=== PATIENT | male | born 1935 | race Caucasian/White ===

== ENCOUNTER → 2017-10-08 | Day surgery (SDC) | payer MEDICARE, OTHER ==
[2017-10-06 11:57] LABS: BASOPHILS % 0.5 % (0.0-1.0); EOSINOPHILS # (AUTO) 0.1 (0.0-0.4); EOSINOPHILS % 1.6 % (0.0-6.0); HEMATOCRIT 28.8 % (38.2-49.6); HEMOGLOBIN 9.6 g/dL (14.0-18.0); LYMPHOCYTES # (AUTO) 1.4 (1.0-3.2); LYMPHOCYTES % 24.2 % (18.0-39.1); MEAN CORPUSCULAR HGB CONC 33.3 g/dL (31-35); MONOCYTES # (AUTO) 0.4 (0.2-0.8); NEUTROPHILS # (AUTO) 3.7 (2.1-6.9); NEUTROPHILS % 66.3 % (38.7-80.0); PLATELET COUNT 178 x10e3/uL (140-360); RED CELL DISTRIBUTION WIDTH 13.9 % (11.7-14.4)
[~2017-10-08] MED LIST: ACIDOPHILUS1 EAC1 PO; ALENDRONATE SOD70 MG PO; ALENDRONATE SODI5 MG; AMLODIPINE BESYL5 MG PO; ASPIRIN81 M1 PO; CHLORTHALIDONE25 MG PO; CIPROFLOXACIN500 MG PO; DIAZEPAM2 MG; IBUPROFEN100 M1; LEVAQUIN500 MG PO; LIDOCAINE HCL 2% LOCAL INJ 5 ML SDV VIAL INJ ONE; LOVASTATIN10 MG; LOVASTATIN40 MG PO; Lactobacillus Acidophilus PO; MAGNESIUM OXID400 MG PO; MECLIZINE HCL12.5 MG PO; METFORMIN HCL500 M1 PO; METOPROLOL SUCC25 MG PO; METOPROLOL TART50 MG PO; Meclizine Hcl PO; NEXIUM40 MG PO; OMEPRAZOLE40 MG PO; PANTOPRAZOLE SO40 MG PO; PROPOFOL IV EMULSION 10 MG/ML 50 ML VIAL ONE; TERAZOSIN HCL5 MG PO; TYLENOL WITH C1 EAC1 PO; ULTRAM 50MG50 MG PO; VASOTEC10 M1 PO; VESICARE5 MG PO
--- OUTSIDE RECORDS SUMMARY | 2017-10-08 07:35 | XMS REPORT ---
Author Author [facility] Address Unknown Phone Unavailable Care Team Providers Care Rn Post Partum Name Role Phone DAGOBERTO HEWITT Unavailable Unavailable Problems This patient has no known problems. Allergies, Adverse Reactions, Alerts This patient has no known allergies or adverse reactions. Medications This patient has no known medications. Results Test Description Test Time Test Comments Text Results Atomic Results Result Comments CHEST XRAY LINE PLACEMENT [place] [address] Patient Name: DARIEN SINGH MR #: [id number] : 1935 Age/Sex: 81/M Req #: [id number] Adm Physician: DAGOBERTO HEWITT MD Ordered by: DAGOBERTO HEWITT MD Report #: [id number] Location: [facility] Room/Bed: [place] [address] Procedure: [id number] DX/CHEST XRAY LINE PLACEMENT Exam Date: 02/14/17 Exam Time: 1909 REPORT STATUS: Signed EXAMINATION: CHEST XRAY LINE PLACEMENT INDICATION: PICC line placement COMPARISON: 02/14/2017 at 1412 hours FINDINGS: TUBES and LINES: Interval placement of right upper extremity PICC line with tip at the proximal to mid SVC. LUNGS: Lungs are not well inflated. Lungs are clear. There is no evidence of pneumonia or pulmonary edema. PLEURA: No pleural effusion or pneumothorax. HEART AND MEDIASTINUM: The cardiomediastinal silhouette is unremarkable. BONES AND SOFT TISSUES: No acute osseous lesion. Soft tissues are unremarkable. UPPER ABDOMEN: No free air under the diaphragm. IMPRESSION: No acute thoracic abnormality. Signed by: Dr. Víctor tSacy M.D. on 02/14/2017 7:14 PM Dictated By: VÍCTOR SOARES MD 13 Transcribed By: LISA on 02/14/171913 COPY TO: DAGOBERTO HEWITT MD ANKLE 3 + VIEWS RIGHT [place] [address] Patient Name: DARIEN SINGH MR #: [id number] : 1935 Age/Sex: 81/M Req #: [id number] Adm Physician: Ordered by: WILLIAM NICHOLS MD Report #: [id number] Location: ER Room/Bed: Procedure: [id number] DX/ANKLE 3 + VIEWS RIGHT Exam Date: 02/14/17 Exam Time: 1412 REPORT STATUS: Signed ANKLE 3 + VIEWS RIGHT - 3 views HISTORY: Pain COMPARISON: None available. FINDINGS: Bones: No acute displaced fracture. Osseous alignment is within normal limits. Joints: The joint spaces are well-maintained. Soft tissues: Mild lateral malleolar soft tissue swelling. Vascular calcifications. IMPRESSION: No acute radiographic abnormality. Mild soft tissue swelling. Signed by: Dr. Zaid Sesay M.D. on 02/14/2017 2:30 PM Dictated By: KUNAL SESAY MD, MD 29 Transcribed By: LISA on 02/14/171429 COPY TO: WILLIAM NICHOLS MD CHEST SINGLE (PORTABLE) [place] [address] Patient Name: DARIEN SINGH MR #: [id number] : 1935 Age/Sex: 81/M Req #: [id number] Adm Physician: Ordered by: WILLIAM NICHOLS MD Report #: [id number] Location: ER Room/Bed: Procedure: [id number] DX/CHEST SINGLE (PORTABLE) Exam Date: 02/14/17 Exam Time: 1412 REPORT STATUS: Signed Examination: Single AP view of the chest. COMPARISON: None. INDICATION: Pain. Fall. DISCUSSION: Lines/tubes: None. Lungs: The lungs are well inflated and clear. There is no evidence of pneumonia or pulmonary edema. Pleura: There is no pleural effusion or pneumothorax. Heart and mediastinum: Cardiomediastinal silhouette is unremarkable. Pulmonary vasculature is normal. Bones and soft tissues: No acute bony abnormalities. Degenerative changes in the thoracic spine. IMPRESSION: 1. No acute osseous abnormality. Signed by: Dr. Zaid Sesay M.D. on 02/14/2017 2:31 PM Dictated By: KUNAL SESAY MD, MD 1431 Transcribed By : LISA on 02/14/17 1431 COPY TO: WILLIAM NICHOLS MD
[2017-10-08 08:17] LABS: BASOPHILS % 0.6 % (0.0-1.0); EOSINOPHILS # (AUTO) 0.2 (0.0-0.4); EOSINOPHILS % 3.3 % (0.0-6.0); HEMATOCRIT 27.3 % (38.2-49.6); HEMOGLOBIN 9.2 g/dL (14.0-18.0); LYMPHOCYTES # (AUTO) 1.3 (1.0-3.2); LYMPHOCYTES % 25.6 % (18.0-39.1); MEAN CORPUSCULAR HEMOGLOBIN 29.8 pg (28-32); MEAN CORPUSCULAR HGB CONC 33.7 g/dL (31-35); MEAN CORPUSCULAR VOLUME 88.3 fL (81-99); MONOCYTES # (AUTO) 0.4 (0.2-0.8); MONOCYTES % 8.4 % (4.4-11.3); NEUTROPHILS # (AUTO) 3.2 (2.1-6.9); NEUTROPHILS % 61.7 % (38.7-80.0); PLATELET COUNT 142 x10e3/uL (140-360); RED BLOOD COUNT 3.09 x10e6/uL (4.3-5.7); RED CELL DISTRIBUTION WIDTH 14.2 % (11.7-14.4)
== END | disposition home or self-care (01) ==
LOC: OR 07:33
PROVIDERS: ATTEND Internal Medicine Gastroenterology
DX: K52.9 Noninfective gastroenteritis and colitis, unspecified (principal); Z85.038 Personal history of other malignant neoplasm of large intestine; Z98.0 Intestinal bypass and anastomosis status; K64.8 Other hemorrhoids; K21.9 Gastro-esophageal reflux disease without esophagitis; E66.3 Overweight; R03.0 Elevated blood-pressure reading, without diagnosis of hypertension; E11.9 Type 2 diabetes mellitus without complications; Z88.0 Allergy status to penicillin; Z01.810 Encounter for preprocedural cardiovascular examination; Z01.812 Encounter for preprocedural laboratory examination; Z79.82 Long term (current) use of aspirin; Z68.26 Body mass index [BMI] 26.0-26.9, adult; Z85.828 Personal history of other malignant neoplasm of skin; Z86.73 Personal history of transient ischemic attack (TIA), and cerebral infarction without residual deficits; Z87.891 Personal history of nicotine dependence
CPT/HCPCS: 36415 ×2; 45380; 82948; 85025 ×2; 88305; 93005; J2001

== ENCOUNTER 2017-10-11 14:01 | Inpatient (IN) | payer MEDICARE, OTHER ==
[~2017-10-11] VITALS: Ht 177.8 cm; Wt 78.6 kg
[~2017-10-11 14:01] MED LIST changes: -LIDOCAINE HCL 2% LOCAL INJ 5 ML SDV VIAL INJ ONE; -PROPOFOL IV EMULSION 10 MG/ML 50 ML VIAL ONE; -TYLENOL WITH C1 EAC1 PO
[2017-10-11] MEDS ORDERED: SODIUM CHLORIDE FLUSH 10 ML SYR INJ PRN (16:30)
[2017-10-11] MEDS ORDERED: ONDANSETRON HCL INJ 2 MG/ML VIAL IV PRN (16:30)
[2017-10-11] MEDS ORDERED: MORPHINE SULFATE 2 MG/ML SYR IV PRN (16:35)
--- OUTSIDE RECORDS SUMMARY | 2017-10-11 17:08 | XMS REPORT | Continuity of Care Document ---
Author Author [facility] Organization [facility] Address [address] [place] [place] [address] Phone Unavailable Care Team Providers Care Bed Manager Name Role Phone ABEL, DAGBOERTO PCP Insurance Providers Guarantor Darien Singh Address [address] [place] [address] Email [email or web address] Payer [employer] Hmo Policy Number [id number] Subscriber's Name NellqingDarien Sara Relationship 18 Self / Same As Patient Group Number [id number] Group Name RETIRED Effective Date 17 Payer [employer] Medicare Policy Number [id number] Subscriber's Name Darien Singh Relationship 18 Self / Same As Patient Group Number [id number] Group Name [facility] Effective Date 13 Advance Directives Directive Response Recorded Date/Time Does the patient have an advance directive? Yes 10/06/17 10:53am If yes, is advance directive on file with [facility]? No 02/14/17 6:52pm If not on file with [facility] will patient provide a copy? Yes 10/06/17 10:53am Do you have a Directive to Physician? Yes 10/11/17 2:29pm Do you have a Medical Power of Coal Handling Supervisor? Yes 10/11/17 2:29pm Do you have an out of hospital Do Not Resuscitate Order? No 10/11/17 2:29pm Do you have any special needs we should be aware of? No 10/11/17 2:29pm Do you have a support person here with you today? Yes 10/11/17 2:29pm Did patient receive Notice of Privacy Practices? Yes 10/11/17 2:29pm Did patient receive patient rights and responsibilities? Yes 10/11/17 2:29pm Problems Medical Problem Onset Date Status Decreased ambulation status Unknown Dehydration Unknown Hip pain, left Unknown Hypokalemia Unknown Weakness of left lower extremity Unknown Medications Current Home Medications Medication Dose Units Route Directions Days Qty Instructions Start Date Alendronate Sodium 70 Mg Tablet 1 Tab Oral Wkly Amlodipine Besylate 5 Mg Tablet 5 Mg Oral Daily 30 Tab Enalapril Maleate (Vasotec) 10 Mg Tablet 20 Mg Oral Daily Lactobacillus Acidophilus (Acidophilus) 1 Each Tab.chew Oral Daily Lovastatin 40 Mg Tablet 40 Mg Oral Daily THERAPEUTICALLY SUBSTITUTED WITH SIMVASTATIN 20MG Magnesium Oxide 400 Mg Tablet 400 Mg Oral Twice A Day 30 Days 02/20 Meclizine Hcl 12.5 Mg Tablet 12.5 Mg Oral As Needed Metformin Hcl (Metformin Hcl Er) 500 Mg Tab.er.24h 500 Mg Oral Daily Metoprolol Tartrate 50 Mg Tablet 50 Mg Oral Daily Omeprazole 40 Mg Capsule. 1 Tab-Cap Oral Daily Solifenacin Succinate (Vesicare) 5 Mg Tablet 5 Mg Oral Daily 30 Days 02/20/17 Tramadol Hcl (Ultram 50MG*) 50 Mg Tab 50 Mg Oral Every 6 Hours as needed for Pain 20 Tab 02/20/17 Past Home Medications Medication Directions Ordered Status Alendronate Sodium 5 Mg Tablet, Weekly Discontinued Aspirin 81 Mg Tablet, 81 Mg Oral Daily Discontinued Chlorthalidone 25 Mg Tablet, 10 Tab Oral Daily Discontinued Ciprofloxacin Hcl 500 Mg Tablet, 500 Mg Oral Every 12 Hours 02/20/17 Discontinued Diazepam 2 Mg Tablet, Discontinued Esomeprazole Magnesium (Nexium) 40 Mg Capsule., 40 Mg Oral Daily Discontinued Ibuprofen 100 Mg Tab.chew, as needed Discontinued Lactobacillus Acidophilus 1 Tab Tab, 2 Tab Oral Daily 02/20/17 Discontinued Levofloxacin (Levaquin) 500 Mg Tablet, 500 Mg Oral Daily Discontinued Lovastatin 10 Mg Tablet, Discontinued Meclizine Hcl 12.5 Mg Tab, 12.5 Mg Oral Daily 02/20/17 Discontinued Metoprolol Succinate 25 Mg Tab.er.24h, 25 Mg Oral Daily Discontinued Pantoprazole Sodium (Protonix) 40 Mg Tablet.dr, 40 Mg Oral Twice Daily Before Meals Discontinued Terazosin Hcl 5 Mg Capsule, 10 Mg Oral Daily 02/17/17 Discontinued Terazosin Hcl 5 Mg Capsule, 10 Mg Oral Bedtime 02/20/17 Discontinued Terazosin Hcl 5 Mg Capsule, 10 Mg Oral Daily Discontinued Social History Social History Problem Response Recorded Date/Time Onset Date Status Hx Psychiatric Problems No 02/14/2017 6:52pm Not Applicable Not Applicable Hx Eating Disorder No 02/14/2017 6:52pm Not Applicable Not Applicable Hx Substance Use Disorder No 02/14/2017 6:52pm Not Applicable Not Applicable Hx Depression No 02/14/2017 6:52pm Not Applicable Not Applicable Hx Alcohol Use No 02/14/2017 6:52pm Not Applicable Not Applicable Hx Substance Use Treatment No 02/14/2017 6:52pm Not Applicable Not Applicable Hx Physical Abuse No 02/14/2017 6:52pm Not Applicable Not Applicable Smoking Status Start Date Stop Date Former smoker Hospital Discharge Instructions No hospital discharge instruction information available. Plan of Care Discharge Date 10/11/17 5:00pm Disposition ADMITTED Condition at Discharge Stable Prescriptions See Medication Section Referrals DAGOBERTO ROMAN DO Address: [address] [place] [id number] Functional Status No functional status information available. Allergies, Adverse Reactions, Alerts Allergen Type Severity Reaction Status Last Updated Penicillin Allergy Unknown RASH Active 10/06/17 Immunizations No immunization information available. Vital Signs Acute Vital Signs Vital Response Date/Time Temperature (Fahrenheit) 98.1 degrees F (97.6 - 99.5) 02/20/2017 12:57pm Pulse Pulse Rate (adult) 83 bpm (60 - 90) 02/20/2017 12:57pm Respiratory Rate 17 bpm (12 - 24) 02/20/2017 12:57pm Blood Pressure 141/76 mm Hg 02/20/2017 12:57pm Height 5 ft 10 in 10/11/2017 2:28pm Weight 173 lb 10/11/2017 2:28pm Body Mass Index 24.8 kg/m^2 10/11/2017 2:28pm Results Laboratory Results Test Name Result Units Flags Reference Collection Date/Time Result Date/ Time Comments Urine Color YELLOW YELLOW 02/14/2017 2:00pm 02/14/2017 2:48pm Urine Clarity CLEAR CLEAR 02/14/2017 2:00pm 02/14/2017 2:48pm Urine Specific [place] 1.010 1.010-1.025 02/14/2017 2:00pm 2016 2:48pm Urine pH 6 5 - 7 02/14/2017 2:00pm 02/14/2017 2:48pm Urine Leukocyte Esterase NEGATIVE NEGATIVE 02/14/2017 2:00pm 2016 2:48pm Urine Nitrite NEGATIVE NEGATIVE 02/14/2017 2:00pm 02/14/2017 2:48pm Urine Protein NEGATIVE NEGATIVE 02/14/2017 2:00pm 02/14/2017 2:48pm Urine Glucose (UA) NEGATIVE NEGATIVE 02/14/2017 2:00pm 02/14/2017 2: 48pm Urine Ketones NEGATIVE NEGATIVE 02/14/2017 2:00pm 02/14/2017 2:48pm Urine Urobilinogen 0.2 mg/dL 0.2 - 1 02/14/2017 2:00pm 02/14/2017 2: 48pm Urine Bilirubin NEGATIVE NEGATIVE 02/14/2017 2:00pm 02/14/2017 2: 48pm Urine Blood NEGATIVE NEGATIVE 02/14/2017 2:00pm 02/14/2017 2:48pm Urine WBC 0-5 /HPF 0-5 02/14/2017 2:00pm 02/14/2017 3:13pm Urine RBC 0-5 /HPF 0-5 02/14/2017 2:00pm 02/14/2017 3:13pm Urine Bacteria NONE /HPF NONE 02/14/2017 2:00pm 02/14/2017 3:13pm Urine Epithelial Cells FEW /LPF NONE 02/14/2017 2:00pm 02/14/2017 3: 13pm Sodium Level 141 mmol/L 136-145 02/20/2017 5:10am 02/20/2017 6:26am Potassium Level 3.7 mmol/L 3.5-5.1 02/20/2017 5:10am 02/20/2017 6:26am Chloride Level 108 mmol/L H 98-107 02/20/2017 5:10am 02/20/2017 6:26am Carbon Dioxide Level 26 mmol/L 22-29 02/20/2017 5:10am 02/20/2017 6: 26am Anion Gap 10.7 mmol/L 8-16 02/20/2017 5:10am 02/20/2017 6:26am Blood Urea Nitrogen 13 mg/dL 7-02/20/2017 5:10am 02/20/2017 6:26am Creatinine 0.82 mg/dL 0.72-1.25 02/20/2017 5:10am 02/20/2017 6:26am BUN/Creatinine Ratio 16 6-25 02/20/2017 5:10am 02/20/2017 6:26am Estimat Glomerular Filtration Rate > 60 ML/MIN 60- 02/20/2017 5:10am 6:26am Ranges were taken from the National Kidney Disease Education Program and the National Kid[employer] Foundation literature. Reference ranges: 60 or greater: Normal 16-59 (for 3 consecutive months): Chronic kidney disease 15 or less: Kidney failure Glucose Level 75 mg/dL 74-118 02/20/2017 5:10am 02/20/2017 6:26am Calcium Level 8.4 mg/dL 8.4-10.2 02/20/2017 5:10am 02/20/2017 6:26am Magnesium Level 1.1 MG/DL *L 1.3-2.1 02/19/2017 5:00am 02/19/2017 6:34am Results called to ALLAN RAMOS RN at 0633 on 02/19/17 by Marek Banks. RB OK. Total Bilirubin 1.0 mg/dL 0.2-1.2 02/15/2017 11:00am 02/15/2017 11: 51am Aspartate Amino Transf (AST/SGOT) 20 IU/L 5-34 02/15/2017 11:00am 02/15 11:51am Alanine Aminotransferase (ALT/SGPT) 17 IU/L 0-55 02/15/2017 11:00am 11:51am Total Protein 4.9 g/dL L 6.5-8.1 02/15/2017 11:00am 02/15/2017 11:51am Albumin 2.5 g/dL L 3.5-5.0 02/15/2017 11:00am 02/15/2017 11:51am Globulin 2.4 g/dL 2.3-3.5 02/15/2017 11:00am 02/15/2017 11:51am Albumin/Globulin Ratio 1.0 0.8-2.0 02/15/2017 11:00am 02/15/2017 11: 51am Alkaline Phosphatase 44 IU/L 40-150 02/15/2017 11:00am 02/15/2017 11: 51am Stool Lactoferrin (LAB) NEGATIVE NEGATIVE 02/15/2017 8:00pm 2016 8:26pm Testing on stool aspirate specimens is outside nurse emergency room claims since specimen type not validated on this assay. Clostridium Difficile Toxin A & B NEGATIVE NEGATIVE 02/15/2017 8:00pm 02/16/2017 10:33am Testing on stool aspirate specimens is outside nurse emergency room claims since specimen type not validated on this assay. White Blood Count 5.23 x10e3/uL 4.8-10.8 10/08/2017 8:1510/08/2017 8 :21am Red Blood Count 3.09 x10e6/uL L 4.3-5.7 10/08/2017 8:1510/08/2017 8: 21am Hemoglobin 9.2 g/dL L 14.0-18.0 10/08/2017 8:1510/08/2017 8:21am Hematocrit 27.3 % L 38.2-49.6 10/08/2017 8:1510/08/2017 8:21am Mean Corpuscular Volume 88.3 fL 81-99 10/08/2017 8:1510/08/2017 8: 21am Mean Corpuscular Hemoglobin 29.8 pg 28-32 10/08/2017 8:1510/08/2017 8:21am Mean Corpuscular Hemoglobin Concent 33.7 g/dL 31-35 10/08/2017 8:1510/08/2017 8:21am Red Cell Distribution Width 14.2 % 11.7-14.4 10/08/2017 8:152017 8:21am Platelet Count 142 x10e3/uL 140-360 10/08/2017 8:1510/08/2017 8: 21am Neutrophils (%) (Auto) 61.7 % 38.7-80.0 10/08/2017 8:1510/08/2017 8: 21am Lymphocytes (%) (Auto) 25.6 % 18.0-39.1 10/08/2017 8:15am 10/08/2017 8: 21am Monocytes (%) (Auto) 8.4 % 4.4-11.3 10/08/2017 8:15am 10/08/2017 8: 21am Eosinophils (%) (Auto) 3.3 % 0.0-6.0 10/08/2017 8:15am 10/08/2017 8: 21am Basophils (%) (Auto) 0.6 % 0.0-1.0 10/08/2017 8:15am 10/08/2017 8:21am IM GRANULOCYTES % 0.4 % 0.0-1.0 10/08/2017 8:15am 10/08/2017 8:21am Neutrophils # (Auto) 3.2 2.1-6.9 10/08/2017 8:15am 10/08/2017 8:21am Lymphocytes # (Auto) 1.3 1.0-3.2 10/08/2017 8:15am 10/08/2017 8:21am Monocytes # (Auto) 0.4 0.2-0.8 10/08/2017 8:15am 10/08/2017 8:21am Eosinophils # (Auto) 0.2 0.0-0.4 10/08/2017 8:15am 10/08/2017 8:21am Basophils # (Auto) 0.0 0.0-0.1 10/08/2017 8:15am 10/08/2017 8:21am Absolute Immature Granulocyte (auto 0.02 x10e3/uL 0-0.1 10/08/2017 8: 15am 10/08/2017 8:21am Bedside Glucose 127 mg/dL H 70-120 10/08/2017 7:44am 10/08/2017 7:51am Meter ID: [id number] Microbiology Results Procedure Source Organism/Result Collection Date/Time Result Date/Time Result Status Blood Culture Blood NO GROWTH AFTER 5 DAYS, FINAL REPORT 02/14/2017 3:50pm 02/19/2017 3:53pm Final Procedures Procedure Status Date Provider(s) INSERTION OF INFUSION DEV INTO SUP VENA CAVA, PERC APPROACH Completed WILLIAM NICHOLS MD Colonoscopy with biopsy Completed 10/08/17 DARREN GARIBAY MD Encounters Encounter Location Arrival/Admit Date Discharge/Depart Date Attending Provider Departed Emergency Room [facility] 10/11/17 2:01pm 5:00pm UZIEL CAIN MD Registered Surgical Day Care [facility] 10/08/17 7:33am DARREN GARIBAY MD Discharged Inpatient [facility] 02/15/17 2:33pm 02/20/17 3:30pm DAGOBERTO HEWITT MD
[2017-10-11] MEDS: SODIUM CHLORIDE 0.9% 1000ML 1,000 ML IV SCH (17:54)
[2017-10-11 18:00] VITALS: BP 147/72
[2017-10-11] MEDS ORDERED: ACETAMINOPHEN 325 MG TAB PO PRN (18:15)
[2017-10-11] MEDS ORDERED: DEXTROSE 50% SYRINGE 50 ML IV PRN (18:15)
[2017-10-11 19:29] VITALS: BP 147/72
[2017-10-11 20:00] VITALS: BP 152/72
[2017-10-11] MEDS: INSULIN REGULAR, HUMAN 100 UNIT/1 ML 3ML VIAL SQ SCH ×2 (20:48→21:00)
[2017-10-11] MEDS: HYDROCODONE/APAP 7.5MG-325MG 1 EA TAB PO PRN (21:13)
[2017-10-11] MEDS ORDERED: TERAZOSIN HCL5 MG PO (21:56)
[2017-10-11] MEDS ORDERED: MECLIZINE HCL 12.5 MG TAB PO PRN (22:15)
[2017-10-12] VITALS (7 sets, daily range): BP systolic 168–188; BP diastolic 79–85
[2017-10-12] MEDS: SODIUM CHLORIDE 0.9% 1000ML 1,000 ML IV SCH ×3 (00:30→16:07)
[2017-10-12] MEDS: INSULIN REGULAR, HUMAN 100 UNIT/1 ML 3ML VIAL SQ SCH ×3 (07:30→16:30)
[2017-10-12] MEDS ORDERED: HYDRALAZINE HCL 20 MG/ML VIAL IV PRN (08:30)
[2017-10-12] MEDS ORDERED: PANTOPRAZOLE SOD 40 MG TABEC PO SCH (08:30)
[2017-10-12] MEDS ORDERED: TRAMADOL HCL 50 MG TAB PO PRN (08:30)
[2017-10-12 08:56] LABS: BASOPHILS % 0.4 % (0.0-1.0); EOSINOPHILS # (AUTO) 0.2 (0.0-0.4); EOSINOPHILS % 3.7 % (0.0-6.0); HEMOGLOBIN 9.3 g/dL (14.0-18.0); LYMPHOCYTES # (AUTO) 1.6 (1.0-3.2); LYMPHOCYTES % 31.6 % (18.0-39.1); MEAN CORPUSCULAR HEMOGLOBIN 29.8 pg (28-32); MEAN CORPUSCULAR HGB CONC 33.2 g/dL (31-35); MEAN CORPUSCULAR VOLUME 89.7 fL (81-99); MONOCYTES # (AUTO) 0.4 (0.2-0.8); MONOCYTES % 8.3 % (4.4-11.3); NEUTROPHILS # (AUTO) 2.9 (2.1-6.9); NEUTROPHILS % 55.8 % (38.7-80.0); PLATELET COUNT 122 x10e3/uL (140-360); RED BLOOD COUNT 3.12 x10e6/uL (4.3-5.7); RED CELL DISTRIBUTION WIDTH 14.4 % (11.7-14.4)
[2017-10-12] MEDS ORDERED: SOLIFENACIN SUCCINATE 5 MG TAB PO SCH (09:00)
[2017-10-12] MEDS ORDERED: SIMVASTATIN 20 MG TAB PO SCH (09:00)
[2017-10-12] MEDS ORDERED: METOPROLOL TARTRATE 50 MG TAB PO SCH (09:00)
[2017-10-12] MEDS ORDERED: TERAZOSIN HCL 5 MG CAP PO SCH (09:00)
[2017-10-12] MEDS ORDERED: ENALAPRIL MALEATE 10 MG TAB PO SCH (09:00)
[2017-10-12] MEDS ORDERED: ENOXAPARIN SOD INJ 40 MG/0.4 ML SYR SC SCH (09:00)
[2017-10-12] MEDS ORDERED: AMLODIPINE BESYLATE 5 MG TAB PO SCH (09:00)
[2017-10-12] MEDS ORDERED: LACTOBACILLUS ACIDOPHILUS CAPSULE PO SCH (09:00)
[2017-10-12 09:16] LABS: ALANINE AMINOTRANSFERASE 15 IU/L (0-55); ALBUMIN 3.3 g/dL (3.5-5.0); ALBUMIN/GLOBULIN RATIO 1.3 (0.8-2.0); ALKALINE PHOSPHATASE 54 IU/L (40-150); ANION GAP 11.5 mmol/L (8-16); BLOOD UREA NITROGEN 16 mg/dL (7-26); BUN/CREATININE RATIO 14 (6-25); CALCIUM 8.8 mg/dL (8.4-10.2); CARBON DIOXIDE 27 mmol/L (22-29); CHLORIDE 104 mmol/L (98-107); CREATININE, SERUM 1.11 mg/dL (0.72-1.25); EST GLOMERULAR FILTRATION RATE > 60 ML/MIN (60-); GLUCOSE 109 mg/dL (74-118); POTASSIUM 3.5 mmol/L (3.5-5.1); SODIUM 139 mmol/L (136-145)
[2017-10-12] MEDS: MAGNESIUM OXIDE 400 MG TAB PO SCH ×2 (09:36→17:52)
[2017-10-12 12:52] LABS: CLARITY,URINE CLOUDY (CLEAR); COLOR,URINE YELLOW (YELLOW)
[2017-10-12 12:53] LABS: BACTERIA,URINE MODERATE /HPF; BILIRUBIN,URINE NEGATIVE (NEGATIVE); EPITHELIAL CELLS,URINE FEW /LPF; KETONES,URINE NEGATIVE (NEGATIVE); LEUKOCYTE ESTERASE ,URINE 1+ (NEGATIVE); NITRITE,URINE POSITIVE (NEGATIVE); PROTEIN,URINE DIPSTICK NEGATIVE (NEGATIVE); URINE UROBILINOGEN 0.2 mg/dL (0.2 - 1)
--- NOTE | 2017-10-12 15:15 | Diagnostic Imaging Report ---
Exam: Brain MRI without IV contrast History: Right lower extremity weakness Comparison studies: None Technique: Sagittal and axial T2, axial DWI, axial T2*GRE, axial T1 FLAIR and axial coronal T2 FLAIR. Intravenous contrast: None Findings: Scalp and bone marrow: Postsurgical changes at the craniocervical junction and included upper cervical spine with susceptibility artifact related to metallic hardware (possibly cerclage wires) in the upper dorsal cervical soft tissues. Surgical changes extend from the dorsal cervical soft tissues to the midline occipital scalp incision scar with possible changes of decompressive occipital craniotomy/craniectomy. The anterior C1 arch and dens are fused and there is fusion of C1-C2 to the basion and occipital condyles. Cannot adequately evaluate the craniocervical junction due to artifacts. Mildly prominent Brain sulci: Appropriate for age. Ventricles: Mild compensatory dilatation. No hydrocephalus. Extra-axial spaces: No mass, no fluid collection. Parenchyma: No mass, acute hemorrhage or acute ischemia. No abnormal restricted diffusion. 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 There are multiple chronic insults with encephalomalacia and gliosis throughout the right posterior cerebellum, within the left inferomedial cerebellum as well as smaller lacunar insults in the bilateral cerebellar hemispheres. Additional small chronic cortical-subcortical insult along the lingual and cuneus gyri of the right occipital lobe. Suprasellar region: No abnormalities. Craniocervical junction: The above. Vessels: Normal flow-voids in the arteries and sinuses. IMPRESSION: 1. No acute abnormalities. Specifically, no acute ischemia. 2. Postsurgical changes with craniocervical fusion and probably posterior fossa decompression. 3. Chronic insults with encephalomalacia and gliosis in the bilateral cerebellar hemispheres with smaller insult in the right occipital lobe and left thalamus. 4. Mild supratentorial chronic microvascular ischemic changes. 5. Mild generalized volume loss. Signed by: Dr. Duane Lujan M.D. on 10/12/2017 3:11 PM
--- NOTE | 2017-10-12 17:26 | Diagnostic Imaging Report ---
EXAMINATION: MRI of the lumbar spine without contrast HISTORY: Severe low back pain for the last 4 days, left hip pain COMPARISON: Chest CT on 06/29/2012. TECHNIQUE: Sagittal T1, T2, STIR; axial T2 and proton density. FINDINGS: It is assumed that there are 5 lumbar vertebrae. Curvature/Alignment: S-shaped scoliosis with dextroscoliosis center at L1-L2 and distal levoscoliosis centered at L3-L4. Grade 1 retrolisthesis at L1 to and great 1-2 anterolisthesis at L5-S1. Right lateral spondylolisthesis at L2-L3. Vertebrae: Severe recent osteoporotic compression/likely burst fracture off the T12 vertebral body, with approximately 2 mm posterior retropulsion into the spinal canal, no significant canal stenoses and no evidence of distal thoracic spinal cord/conus medullaris compression. There is decreased vertebral body height by approximately 90% centrally, with prominent bone marrow edema throughout the vertebral body and extending to the pedicles mainly on the left side. Comminution and depression of the superior and inferior endplates. Mild chronic compression fractures of the T10 and T11 vertebral bodies grossly unchanged from chest CT on 06/29/2012. Minimal edema in the right T11 pedicle is partially visualized. Prominent subchondral bone marrow edema at L1-L2 mainly on the left side and on the right side at L3-L4 due to Modic I endplate degenerative changes, additional minimal superimposed component of compression fracture in the L1-L2 endplates cannot be excluded. Conus: Normal, terminating at L1 Cauda equina: Unremarkable. Lower thoracic: As above Paraspinal soft tissues: Moderate to severe atrophy of the paraspinal muscles. Partially visualized portable extrarenal pelvis on the left kidney Degenerative changes: L1-L2: Dictated disc height and T2 signal intensity, asymmetric to left disc pole which and marginal endplate osteophytes, bilateral facet arthrosis. Moderate spinal canal stenosis. Moderate right and severe left foraminal stenosis. L2-L3: Asymmetric to the right disc osteophyte and facet arthrosis. Ligamenta flava thickening. Mild spinal canal stenosis. Severe right and moderate left foraminal stenosis. L3-L4: Asymmetric to the right disc osteophyte and facet arthrosis, ligamenta flava thickening. Moderate spinal canal and severe right foraminal stenosis. L4-L5: Asymmetric to the left disc pole which and prominent approximately 7 mm left foraminal/extraforaminal disc herniation which is probably compressing the exiting left L4 nerve root. Bilateral facet arthrosis. Severe left and moderate right foraminal stenoses L5-S1: Symmetric disc bulge with nonspecific increased T2 signal within the nucleus pulposus. Bilateral facet arthrosis. Bilateral L5 pars interarticulares spondylolysis. Severe bilateral foraminal stenoses. Sacroiliac joints: Degenerative changes bilaterally. IMPRESSION: 1. Severe acute compression fracture of the T12 vertebral body with minimal posterior retropulsion, no significant canal stenoses or cord compression. 2. Modic type I endplate degenerative changes at L1-L2 and L3-4 with prominent subchondral bone marrow edema. 3. Grade 1 spondylolisthesis at L5-S1 with bilateral spondylolysis and severe bilateral foraminal stenoses. 4. Moderate to severe spinal canal and foraminal stenoses from L1-L2 to L4-L5 as detailed above. The findings were discussed with the requesting physician Dr. Alexandras BRITT Navarro on 10/12/2017 at 5:00 PM, who will inform the attending physician about this findings. Signed by: Dr. Anita Aldana M.D. on 10/12/2017 5:22 PM
[2017-10-12] MEDS: HYDROCODONE/APAP 7.5MG-325MG 1 EA TAB PO PRN ×2 (17:40→19:45)
[2017-10-12] MEDS ORDERED: TYLENOL WITH C1 EAC1 PO (17:59)
--- NOTE | 2017-10-12 19:03 | History and Physical ---
SHORTSTAY SUMMARY DATE OF DISCHARGE: 10/12/2017 PRIMARY CARE PROVIDER: Dr. Schuyler Turner. ADMITTING DIAGNOSES 1. Intractable left hip and leg pain. 2. Contusion, left hip. 3. History of total hip arthroplasty, left hip. 4. 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 5. Osteoporosis. 6. Hypertension. 7. Type-2 diabetes. 8. History of carcinoid cancer of the colon. DISCHARGE DIAGNOSES 1. Intractable left hip and leg pain. 2. Contusion, left hip. 3. History of total hip arthroplasty, left hip. 4. 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 5. Osteoporosis. 6. Hypertension. 7. Type-2 diabetes. 8. History of carcinoid cancer of the colon. BRIEF HISTORY: Mr. Dorsey is an 82-year-old gentleman who had a colonoscopy a couple of days ago where he was lying for a prolonged period on his left hip. The patient has a history of open reduction and internal fixation of the left femur in 1969, and he had a total hip replacement, total hip arthroplasty done in [address] Turner. The patient was complaining of pain in the left hip and difficulty bearing weight after the procedure for the last couple of days and presented to the ER yesterday. REVIEW OF SYSTEMS: He denies fever, chills or weight loss. He denies sinus congestion or sore throat. He denies chest pain or palpitations. He denies shortness of breath, wheezing or cough. He denies abdominal pain, nausea, vomiting or melena. He has chronic diarrhea. He denies dysuria or flank pain. He denies rash or pruritus. He has pain in the left hip and left upper leg with some weakness. He denies bleeding or bruising. He denies headache, vertigo or loss of consciousness. He denies depression, agitation, homicidal or suicidal ideation. PAST MEDICAL HISTORY: Significant for longstanding hypertension and type-2 diabetes. He has had some evidence of chronic kidney disease. He has had a previous stroke. He has coronary artery disease, gastroesophageal reflux and chronic back pain. He also has a history of carcinoid cancer of the colon, which was resected, and he has had some chemotherapy since then. He has also had a cholecystectomy. He has had cataract surgery. MEDICATIONS: His regular home medications include: 1. Fosamax 70 mg weekly. 2. Norvasc 5 mg daily. 3. Enalapril 20 mg daily. 4. Acidophilus daily. 5. Lovastatin 40 mg daily. 6. Magnesium oxide 400 twice daily. 7. Calcium with vitamin D twice daily. 8. Meclizine 25 mg as needed. 9. Metoprolol 50 mg daily. 10. Omeprazole 40 mg daily. 11. VESIcare 5 mg daily. 12. Hytrin 5 mg daily. 13. Tramadol as needed for pain. 14. Metformin 500 mg daily. ALLERGIES: HE HAS A STATED ALLERGY TO PENICILLIN. FAMILY HISTORY: Significant for hypertension, diabetes and heart disease. SOCIAL HISTORY: The patient is . Prydein[place] is his primary language. He is . He is here with his . He quit smoking in 1984. He does not drink or use illegal drugs, and he is generally independently functioning. PHYSICAL EXAMINATION PSYCHIATRIC: He is alert and oriented times 3 with normal mood and affect. CONSTITUTIONAL: He has a normal body habitus. He is in no acute distress. VITAL SIGNS: Blood pressure 178/81. Pulse 76 and regular. Respiratory rate 16. O2 sat 93%. Temperature 98.6. HEENT: Head is atraumatic. Eyes are anicteric with clear conjunctivae. Ears and nares are without erythema or discharge. Oropharynx is clear. NECK: Supple. No mass or thyromegaly. LYMPHATIC SYSTEM: He has no palpable cervical, axillary or inguinal adenopathy. CARDIOVASCULAR: His heart has a regular rate and rhythm without murmur or extra heart sound. He has no carotid bruit. He has no peripheral edema. He has weak dorsal pedal pulses. RESPIRATORY: Lungs are clear to auscultation and percussion with normal respiratory effort. GASTROINTESTINAL: Abdomen is soft without organomegaly, masses or tenderness. He has normal bowel sounds present. CUTANEOUS: His skin is warm and dry to touch with no rash or skin breakdown. MUSCULOSKELETAL: His joints are in normal alignment without erythema or swelling. He has some mild tenderness in the left hip. He has no calf tenderness. NEUROLOGIC: Exam is nonfocal with intact cranial nerves and no motor or sensory deficits. DIAGNOSTIC STUDIES: MRI scan of the brain shows no acute changes but does show some severe chronic changes, postsurgical changes in the craniocervical area probably due to posterior fossa decompression and chronic insults with encephalomalacia and gliosis in the bilateral cerebellar hemispheres with small insult in the right occipital lobe and left thalamus. Mild supratentorial chronic microvascular ischemic changes and generalized volume loss. MRI of the lumbar spine shows chronic T12 compression fracture that is pretty severe but shows no cord compression at that level or foraminal narrowing. He has severe DJD in the L4-5, L3-4 area with some central canal stenosis but no neural foraminal narrowing. His chemistry shows normal electrolytes, CO2 27, creatinine 1.11 and BUN 16 for a normal GFR. His baseline is around 50. He was hydrated overnight, which seems to have helped. Calcium is 8.8. Glucose is 109. Transaminases, bilirubin and alk phos are all normal. CBC shows a white count of 5.16 with a normal differential. Hemoglobin 9.3, hematocrit 28.0 and platelet count 122,000. IMPRESSION AND PLAN 1. Contusion of left hip. The patient is feeling better with pain medication and has ambulated with PT and OT and a walker without difficulty. 2. Chronic degenerative changes in the lumbar spine and chronic T12 compression fracture. The patient is asymptomatic from these, so we will just monitor them. 3. Osteoporosis as evidenced by the T12 compression fracture. The patient is on Fosamax and calcium and magnesium plus vitamin D. 4. Hypertension. Patient is well controlled on his home medications. Will continue those. 5. Type-2 diabetes. Will hold the patient's metformin in view of the IV contrast. Patient can start his metformin once he goes home. Will use sliding-scale insulin as needed for coverage now. 6. For prophylaxis, the patient was given Lovenox for DVT prophylaxis and Protonix for GI prophylaxis. HOSPITAL COURSE: The patient was admitted to the floor overnight for observation. With hydration and pain medication, the patient felt much better the following day. He was ambulating with PT and OT, had no pain, no back pain and his hip pain had improved substantially, although the patient did take some pain medication. The patient will be discharged home to resume all of his home meds. He was instructed to drink more fluids for his kidneys. He can resume a diabetic diet and activity as tolerated. He will be given a prescription for some Tylenol No. 4 as needed for pain. He can follow up with his primary care provider within 2 weeks. Job#: [id number]
--- NOTE | 2017-10-12 20:14 | Consultation ---
DATE OF CONSULTATION: October 12, 2017 at 5 p.m. NEUROLOGICAL CONSULTATION REASON FOR CONSULTATION: Pain and weakness in the left leg. This is an 82-year-old male. During the time of this examination, his is visiting him. He is awake. He is smiling, comfortable, very talkative. Reason for the hospitalization is that the said since Thursday he was unable to stand up because of pain in the left hip and left leg. At the present time, she said he does not have any pain. He is moving his arms and legs quite well. He was able to walk with the physical therapist today. PAST MEDICAL HISTORY: Hypertension, chronic back pain, left hip replacement, cancer of the colon. MEDICATIONS: List of medications reviewed. ALLERGIES: NO KNOWN DRUG ALLERGIES. SOCIAL HISTORY: Noncontributory. PHYSICAL EXAMINATION VITAL SIGNS: Blood pressure 178/81, pulse 76, temperature 98.6. LUNGS: Clear to auscultation. HEART: Regular sinus rhythm, no murmurs. ABDOMEN: Soft, nontender, no organomegaly. LOWER EXTREMITIES: No edema, no cyanosis, no clubbing. NEUROLOGIC: Alert, oriented x3. Speech clear. Cranial nerves: Pupils are both equal and reactive. Extraocular movements were full. Visual bowman normal. No facial weakness. Motor power: Upper extremities show able to elevate against gravity without any difficulty. Muscle strength: Abduction of the arms 5/5. Flexion, extension of the arms 5/5. Dorsiflexion of the wrist 5/5. Finger extension 5/5. Hand sql ssrs ssis developer 5/5. Lower extremities: The patient is able to elevate both lower extremities against gravity without any difficulty. Flexion of the hips 5/5. Flexion and extension of the knees 5/5. Dorsal flexion of the ankles 5/5. Plantar sensation 5/5 bilaterally. Deep tendon reflexes: Triceps, biceps and radials 1+. Knee jerk 1+, ankle jerk absent bilaterally. Plantar stimulation down bilaterally. Sensory: Pinprick is normal. Hip motion: Internal and external rotation bilaterally without any pain. HEAD: Normocephalic. NECK: Supple. Carotid pulsations were present bilaterally. There were no bruits. LABORATORY DATA: CBC shows a white count 5100 with a hemoglobin 9.3, hematocrit 28, platelets 122,000. Chemistry: Sodium 139, potassium 3.5. BUN 16, creatinine 1.11. Estimated GFR greater than 60. Blood sugar 109. Liver enzymes are all normal. Urinalysis: Moderate bacteria, WBCs 6-10. IMAGING: MRI of the brain without contrast shows some chronic small vessel disease bilaterally. MRI of the lumbar spine shows acute compression fracture of T12. Chronic osteoarthritic changes of the lumbar spine with narrowing foramina, moderate to severe spinal stenosis at L1, L2 to L4, L5, otherwise looks fine, seems to be chronic changes. The patient is very anxious to go home. I will be discussing with attending physician for further options. Job#: [id number]
[2017-10-18] MEDS ORDERED: ALENDRONATE SODIUM 70 MG TAB PO SCH (06:30)
== END 2017-10-12 19:53 | disposition home or self-care (01) | DRG 605 ==
LOC: FSED 14:01 → MED/SURG 17:06
PROVIDERS: ADMIT Internal Medicine; ATTEND Internal Medicine
DX: S70.02XA Contusion of left hip, initial encounter (principal); I13.0 Hypertensive heart and chronic kidney disease with heart failure and stage 1 through stage 4 chronic kidney disease, or unspecified chronic kidney disease; E11.22 Type 2 diabetes mellitus with diabetic chronic kidney disease; I10 Essential (primary) hypertension; M47.896 Other spondylosis, lumbar region; G89.29 Other chronic pain; Z96.642 Presence of left artificial hip joint; E11.9 Type 2 diabetes mellitus without complications; M80.08XD Age-related osteoporosis with current pathological fracture, vertebra(e), subsequent encounter for fracture with routine healing; I25.10 Atherosclerotic heart disease of native coronary artery without angina pectoris; Z86.73 Personal history of transient ischemic attack (TIA), and cerebral infarction without residual deficits; K21.9 Gastro-esophageal reflux disease without esophagitis; N18.9 Chronic kidney disease, unspecified; F17.210 Nicotine dependence, cigarettes, uncomplicated
CPT/HCPCS: 36415; 70551; 72148; 80053; 81001; 82948; 85025; 99284; J1650; J2270; J2405; J7030

== ENCOUNTER 2017-10-13 12:29 | Emergency (ER) | payer MEDICARE, OTHER ==
[~2017-10-13] VITALS: Ht 177.8 cm; Wt 78.5 kg
[~2017-10-13 12:29] MED LIST changes: +TYLENOL WITH C1 EAC1 PO
--- OUTSIDE RECORDS SUMMARY | 2017-10-13 12:32 | XMS REPORT | Continuity of Care Document ---
Author Author [facility] Organization [facility] Address [address] [place] [address] Phone Unavailable Care Team Providers Care Senior Partner Name Role Phone DAGOBERTO ROMAN DO PCP Insurance Providers Guarantor Darien Singh Address [address] [place] [address] Email [email or web address] Payer [employer] Medicare Policy Number [id number] Subscriber's Name Darien Singh Relationship 18 Self / Same As Patient Group Number [id number] Group Name [facility] Effective Date 17 [facility] Policy Number [id number] Subscriber's Name Darien Singh Relationship 18 Self / Same As Patient Group Number [id number] Group Name RETIRED Effective Date 17 Advance Directives Directive Response Recorded Date/Time Does the patient have an advance directive? Yes 10/11/17 5:56pm If yes, is advance directive on file with [facility]? No 10/11/17 5:56pm If not on file with [facility] will patient provide a copy? Yes 10/11/17 5:56pm Do you have a Directive to Physician? Yes 10/11/17 2:29pm Do you have a Medical Power of New Media Strategist? Yes 10/11/17 2:29pm Do you have an [...] Route Directions Days Qty Instructions Start Date Acetaminophen With Codeine (Tylenol With Codeine #4 Tablet) 1 Each Tablet 1 Tab Oral Every 6 Hours for Pain 90 10/12/17 Alendronate Sodium 70 Mg Tablet 1 Tab [...] Days 02/20 Meclizine Hcl 12.5 Mg Tablet 25 Mg Oral As Needed Metformin Hcl (Metformin Hcl Er) 500 Mg Tab.er.24h 500 Mg Oral Daily Metoprolol Tartrate 50 Mg Tablet 50 Mg Oral Daily Omeprazole 40 Mg Capsule. 1 Tab-Cap Oral Daily Solifenacin Succinate (Vesicare) 5 Mg Tablet 5 Mg Oral Daily 30 Days 02/20/17 Terazosin Hcl 5 Mg Capsule 5 Mg Oral Daily 30 Cap Tramadol Hcl (Ultram 50MG*) 50 Mg Tab [...] Tablet, Discontinued Esomeprazole Magnesium (Nexium) 40 Mg Capsule.dr, 40 Mg Oral Daily Discontinued Ibuprofen 100 [...] Onset Date Status Hx Psychiatric Problems No 10/11/2017 5:56pm Not Applicable Not Applicable Hx Eating Disorder No 10/11/2017 5:56pm Not Applicable Not Applicable Hx Substance Use Disorder No 10/11/2017 5:56pm Not Applicable Not Applicable Hx Depression No 10/11/2017 5:56pm Not Applicable Not Applicable Hx Alcohol Use No 10/11/2017 5:56pm Not Applicable Not Applicable Hx Substance Use Treatment No 10/11/2017 5:56pm Not Applicable Not Applicable Hx Physical Abuse No 10/11/2017 5:56pm Not Applicable Not Applicable Smoking Status Start Date Stop Date Former smoker Hospital Discharge Instructions No hospital discharge instruction information available. Plan of Care Discharge Date 10/12/17 7:53pm Disposition HOME, SELF-CARE Instructions/Education Provided Back Pain Prescriptions See Medication Section Additional Instructions/Education ADA diet Activity as tolerated f/u PCP w/in 2wks Functional Status Query Response Date Recorded FUNCTIONAL STATUS . October 12, 2017 12:17pm Ambulation Ability Independent October 11, 2017 6:00pm Toileting Ability Minimum Assistance October 12, 2017 6:58pm Allergies, Adverse Reactions, Alerts Allergen Type Severity Reaction Status Last Updated Penicillin Allergy Unknown RASH Active 10/06/17 Immunizations No immunization information available. Vital Signs Acute Vital Signs Vital Response Date/Time Temperature (Fahrenheit) 98.6 degrees F (97.6 - 99.5) 10/12/2017 4:00pm Pulse Pulse Rate (adult) 76 bpm (60 - 90) 10/12/2017 4:00pm Respiratory Rate 16 bpm (12 - 24) 10/12/2017 4:00pm Blood Pressure 178/81 mm Hg 10/12/2017 4:00pm Height 5 ft 10 in 10/11/2017 2:28pm Weight 173.25 lb 10/12/2017 8:02am Body Mass Index 24.9 kg/m^2 10/12/2017 8:02am Results Laboratory Results Test Name Result Units Flags Reference Collection Date/Time Result Date/ Time Comments Magnesium Level 1.1 MG/DL *L 1.3-2.1 02/19/2017 5:00am 02/19/2017 6:34am Results called to ALLAN RAMOS RN at 0633 on 02/19/17 by Marek Banks. CHERIE OK. Stool Lactoferrin (LAB) NEGATIVE NEGATIVE 02/15/2017 8:00pm 2016 8:26pm Testing on stool aspirate specimens is outside welder 2nd shift claims since specimen type not validated on this assay. Clostridium Difficile Toxin A & B NEGATIVE NEGATIVE 02/15/2017 8:00pm 02/16/2017 10:33am Testing on stool aspirate specimens is outside welder 2nd shift claims since specimen type not validated on this assay. White Blood Count 5.16 x10e3/uL 4.8-10.8 10/12/2017 8:45am 10/12/2017 9 :04am Red Blood Count 3.12 x10e6/uL L 4.3-5.7 10/12/2017 8:45am 10/12/2017 9: 04am Hemoglobin 9.3 g/dL L 14.0-18.0 10/12/2017 8:45am 10/12/2017 9:04am Hematocrit 28.0 % L 38.2-49.6 10/12/2017 8:45am 10/12/2017 9:04am Mean Corpuscular Volume 89.7 fL 81-99 10/12/2017 8:45am 10/12/2017 9: 04am Mean Corpuscular Hemoglobin 29.8 pg 28-32 10/12/2017 8:45am 10/12/2017 9:04am Mean Corpuscular Hemoglobin Concent 33.2 g/dL 31-35 10/12/2017 8:45am 10/12/2017 9:04am Red Cell Distribution Width 14.4 % 11.7-14.4 10/12/2017 8:45am 2017 9:04am Platelet Count 122 x10e3/uL L 140-360 10/12/2017 8:45am 10/12/2017 9: 04am Neutrophils (%) (Auto) 55.8 % 38.7-80.0 10/12/2017 8:45am 10/12/2017 9: 04am Lymphocytes (%) (Auto) 31.6 % 18.0-39.1 10/12/2017 8:45am 10/12/2017 9: 04am Monocytes (%) (Auto) 8.3 % 4.4-11.3 10/12/2017 8:45am 10/12/2017 9: 04am Eosinophils (%) (Auto) 3.7 % 0.0-6.0 10/12/2017 8:45am 10/12/2017 9: 04am Basophils (%) (Auto) 0.4 % 0.0-1.0 10/12/2017 8:45am 10/12/2017 9:04am IM GRANULOCYTES % 0.2 % 0.0-1.0 10/12/2017 8:45am 10/12/2017 9:04am Neutrophils # (Auto) 2.9 2.1-6.9 10/12/2017 8:45am 10/12/2017 9:04am Lymphocytes # (Auto) 1.6 1.0-3.2 10/12/2017 8:45am 10/12/2017 9:04am Monocytes # (Auto) 0.4 0.2-0.8 10/12/2017 8:45am 10/12/2017 9:04am Eosinophils # (Auto) 0.2 0.0-0.4 10/12/2017 8:45am 10/12/2017 9:04am Basophils # (Auto) 0.0 0.0-0.1 10/12/2017 8:45am 10/12/2017 9:04am Absolute Immature Granulocyte (auto 0.01 x10e3/uL 0-0.1 10/12/2017 8: 45am 10/12/2017 9:04am Urine Color YELLOW YELLOW 10/12/2017 12:30pm 10/12/2017 12:53pm Urine Clarity CLOUDY H CLEAR 10/12/2017 12:30pm 10/12/2017 12:53pm Urine Specific [place] 1.015 1.010-1.025 10/12/2017 12:30pm 2017 12:53pm Urine pH 7 5 - 7 10/12/2017 12:30pm 10/12/2017 12:53pm Urine Leukocyte Esterase 1+ H NEGATIVE 10/12/2017 12:30pm 10/12/2017 12:53pm Urine Nitrite POSITIVE H NEGATIVE 10/12/2017 12:30pm 10/12/2017 12: 53pm Urine Protein NEGATIVE NEGATIVE 10/12/2017 12:30pm 10/12/2017 12: 53pm Urine Glucose (UA) NEGATIVE NEGATIVE 10/12/2017 12:30pm 10/12/2017 12 :53pm Urine Ketones NEGATIVE NEGATIVE 10/12/2017 12:30pm 10/12/2017 12: 53pm Urine Urobilinogen 0.2 mg/dL 0.2 - 1 10/12/2017 12:30pm 10/12/2017 12: 53pm Urine Bilirubin NEGATIVE NEGATIVE 10/12/2017 12:30pm 10/12/2017 12: 53pm Urine Blood TRACE H NEGATIVE 10/12/2017 12:30pm 10/12/2017 12:53pm Urine WBC 6-10 /HPF H 0-5 10/12/2017 12:30pm 10/12/2017 12:53pm Urine RBC NONE /HPF 0-5 10/12/2017 12:30pm 10/12/2017 12:53pm Urine Bacteria MODERATE /HPF H NONE 10/12/2017 12:30pm 10/12/2017 12: 53pm Urine Epithelial Cells FEW /LPF NONE 10/12/2017 12:30pm 10/12/2017 12: 53pm Sodium Level 139 mmol/L 136-145 10/12/2017 8:45am 10/12/2017 9:16am Potassium Level 3.5 mmol/L 3.5-5.1 10/12/2017 8:45am 10/12/2017 9:16am Chloride Level 104 mmol/L 98-107 10/12/2017 8:45am 10/12/2017 9:16am Carbon Dioxide Level 27 mmol/L 22-29 10/12/2017 8:45am 10/12/2017 9: 16am Anion Gap 11.5 mmol/L 8-16 10/12/2017 8:45am 10/12/2017 9:16am Blood Urea Nitrogen 16 mg/dL 7-26 10/12/2017 8:4510/12/2017 9:16am Creatinine 1.11 mg/dL 0.72-1.25 10/12/2017 8:45am 10/12/2017 9:16am BUN/Creatinine Ratio 14 6-25 10/12/2017 8:45am 10/12/2017 9:16am Estimat Glomerular Filtration Rate > 60 ML/MIN 60- 10/12/2017 8:45am 9:16am Ranges were taken from the National Kidney Disease Education Program and the National Kid[employer] Foundation literature. Reference ranges: 60 or greater: Normal 16-59 (for 3 consecutive months): Chronic kidney disease 15 or less: Kidney failure Glucose Level 109 mg/dL 74-118 10/12/2017 8:45am 10/12/2017 9:16am Calcium Level 8.8 mg/dL 8.4-10.2 10/12/2017 8:4510/12/2017 9:16am Bedside Glucose 168 mg/dL H 70-120 10/12/2017 11:45am 10/12/2017 12: 19pm Meter ID: [id number] Total Bilirubin 0.7 mg/dL 0.2-1.2 10/12/2017 8:4510/12/2017 9:16am Aspartate Amino Transf (AST/SGOT) 20 IU/L 5-34 10/12/2017 8:45am 2017 9:16am Alanine Aminotransferase (ALT/SGPT) 15 IU/L 0-55 10/12/2017 8:45 9:16am Total Protein 5.9 g/dL L 6.5-8.1 10/12/2017 8:45am 10/12/2017 9:16am Albumin 3.3 g/dL L 3.5-5.0 10/12/2017 8:45am 10/12/2017 9:16am Globulin 2.6 g/dL 2.3-3.5 10/12/2017 8:45am 10/12/2017 9:16am Albumin/Globulin Ratio 1.3 0.8-2.0 10/12/2017 8:45am 10/12/2017 9: 16am Alkaline Phosphatase 54 IU/L 40-150 10/12/2017 8:45am 10/12/2017 9: 16am Microbiology Results Procedure Source Organism/Result Collection Date/Time Result Date/Time Result Status Blood Culture Blood NO GROWTH AFTER 5 DAYS, FINAL REPORT 02/14/2017 3:50pm 02/19/2017 3:53pm Final Procedures Procedure Status Date Provider(s) INSERTION OF INFUSION DEV INTO SUP VENA CAVA, PERC APPROACH Completed WILLIAM NICHOLS MD Colonoscopy with biopsy Completed 10/08/17 DARREN GARIBAY MD Magnetic resonance imaging of brain without contrast Active 10/12/17 DAGOBERTO HEWITT MD Magnetic resonance imaging of lumbar spine without contrast Active 10/12/17 DAGOBERTO HEWITT MD Encounters Encounter Location Arrival/Admit Date Discharge/Depart Date Attending Provider Discharged Inpatient [facility] 10/11/17 5:06pm 10/12/17 7:53pm DAGOBERTO HEWITT MD Registered Surgical Day Care [facility] 10/08/17 7:33am DARREN GARIBAY MD Discharged Inpatient [facility] 02/15/17 2:33pm 02/20/17 3:30pm DAGOBERTO HEWITT MD
[2017-10-13] MEDS ORDERED: SODIUM CHLORIDE 0.9% 1000ML 1,000 ML IV ONE (14:15)
[2017-10-13 15:06] LABS: HEMATOCRIT 31.5 % (38.2-49.6); HEMOGLOBIN 10.5 g/dL (14.0-18.0); MEAN CORPUSCULAR HEMOGLOBIN 29.4 pg (28-32); MEAN CORPUSCULAR HGB CONC 33.3 g/dL (31-35); MEAN CORPUSCULAR VOLUME 88.2 fL (81-99); PLATELET COUNT 147 x10e3/uL (140-360); RED BLOOD COUNT 3.57 x10e6/uL (4.3-5.7); RED CELL DISTRIBUTION WIDTH 14.3 % (11.7-14.4)
[2017-10-13 16:11] LABS: BILIRUBIN,URINE NEGATIVE (NEGATIVE); CLARITY,URINE CLOUDY (CLEAR); COLOR,URINE YELLOW (YELLOW); KETONES,URINE NEGATIVE (NEGATIVE); LEUKOCYTE ESTERASE ,URINE 1+ (NEGATIVE); NITRITE,URINE NEGATIVE (NEGATIVE); PROTEIN,URINE DIPSTICK NEGATIVE (NEGATIVE); URINE UROBILINOGEN 0.2 mg/dL (0.2 - 1)
[2017-10-13 16:17] LABS: AMORPHOUS SEDIMENT,URINE MODERATE (FEW); BACTERIA,URINE MANY /HPF; MUCUS,URINE RARE (RARE)
[2017-10-13 16:36] LABS: LYMPHOCYTES % (MANUAL) 14 % (19-48); MONOCYTES % (MANUAL) 3 % (3.4-9.0); NEUTROPHILS % (MANUAL) 77 % (40-74); PLATELET ESTIMATE ADEQUATE; PLATELET MORPHOLOGY COMMENT NORMAL; RBC MORPHOLOGY COMMENT NORMAL
[2017-10-13 17:08] LABS: ALANINE AMINOTRANSFERASE 16 IU/L (0-55); ALBUMIN 3.3 g/dL (3.5-5.0); ALKALINE PHOSPHATASE 58 IU/L (40-150); ANION GAP 13.9 mmol/L (8-16); BLOOD UREA NITROGEN 15 mg/dL (7-26); BUN/CREATININE RATIO 13 (6-25); CALCIUM 8.9 mg/dL (8.4-10.2); CARBON DIOXIDE 26 mmol/L (22-29); CHLORIDE 104 mmol/L (98-107); CREATININE, SERUM 1.17 mg/dL (0.72-1.25); EST GLOMERULAR FILTRATION RATE 60 ML/MIN (60-); GLUCOSE 154 mg/dL (74-118); MAGNESIUM 1.3 MG/DL (1.3-2.1); PHOSPHORUS 3.2 MG/DL (2.3-4.7); POTASSIUM 3.9 mmol/L (3.5-5.1); SODIUM 140 mmol/L (136-145)
[2017-10-13 17:27] LABS: THYROID STIMULATING HORMONE 0.875 uIU/mL (0.350-4.940)
[2017-10-13] MEDS ORDERED: LEVOFLOXACIN 500MG/D5W 100ML 100 ML IV ONE (17:30)
[2017-10-13 18:47] VITALS: BP 153/81
== END 2017-10-13 19:09 | disposition home or self-care (01) ==
LOC: ER 12:29
DX: R53.1 Weakness (principal); E86.0 Dehydration; N39.0 Urinary tract infection, site not specified
CPT/HCPCS: 36415; 80053; 81001; 83735; 84100; 84443; 84484; 85007; 85027; 93005; 99284; J1956; J7030

== ENCOUNTER 2017-11-22 12:07 | Emergency (ER) | payer MEDICARE, OTHER ==
[~2017-11-22] VITALS: Ht 177.8 cm; Wt 78.5 kg
--- OUTSIDE RECORDS SUMMARY | 2017-11-22 12:10 | XMS REPORT | Continuity of Care Document ---
Author Author [facility] Organization [facility] Address [address] [place] [address] Phone Unavailable Care Team Providers Care Chief Steward/Stewardess Name Role Phone DAGOBERTO ROMAN DO PCP Insurance Providers Guarantor Darien Singh Address [address] [place] [address] Email [email or web address] Payer [employer] Medicare Policy Number [id number] Subscriber's Name Darien Singh Relationship 18 Self / Same As Patient Group Number [id number] Group Name [facility] Effective Date 17 [facility] Policy Number [id number] Subscriber's Name Darien Singh Relationship 18 Self / Same As Patient Group Number [id number] Group Name [facility] Effective Date 16 Advance Directives Directive Response Recorded Date/Time Does the patient have an advance directive? Yes 10/11/17 5:56pm If yes, is advance directive on file with [facility]? No 10/11/17 5:56pm If not on file with [facility] will patient provide a copy? Yes 10/11/17 5:56pm Do you have a Directive to Physician? No 10/13/17 1:34pm Do you have a Medical Power of Forester Aide? No 10/13/17 1:34pm Do you have an out of hospital Do Not Resuscitate Order? No 10/13/17 1:34pm Do you have any special needs we should be aware of? No 10/13/17 1:34pm Do you have a support person here with you today? Yes 10/13/17 1:34pm Did patient receive Notice of Privacy Practices? Yes 10/13/17 1:34pm Did patient receive patient rights and responsibilities? Yes 10/13/17 1:34pm Problems Medical Problem Onset Date Status Decreased [...] Tablet, Discontinued Esomeprazole Magnesium (Nexium) 40 Mg Capsule.dr 40 Mg Oral Daily Discontinued Ibuprofen 100 [...] Applicable Smoking Status Start Date Stop Date Never Smoker Hospital Discharge Instructions No hospital discharge instruction information available. Plan of Care Discharge Date 10/13/17 7:09pm Disposition HOME, SELF-CARE Condition at Discharge Stable Instructions/Education Provided Urinary Tract Infection - Men Forms Provided Work/School Excuse Prescriptions See Medication Section Referrals DAGOBERTO ROMAN DO Address: [address] [place] [id number] Functional Status No functional status information available. Allergies, Adverse Reactions, Alerts Allergen Type Severity Reaction Status Last Updated Penicillin Allergy Unknown RASH Active 10/06/17 Immunizations No immunization information available. Vital Signs Acute Vital Signs Vital Response Date/Time Temperature (Fahrenheit) 98.0 degrees F (97.6 - 99.5) 10/13/2017 6:47pm Pulse Pulse Rate (adult) 65 bpm (60 - 90) 10/13/2017 6:47pm Respiratory Rate 20 bpm (12 - 24) 10/13/2017 6:47pm Blood Pressure 153/81 mm Hg 10/13/2017 6:47pm Height 5 ft 10 in 10/13/2017 12:45pm Weight 173 lb 10/13/2017 12:45pm Body Mass Index 24.8 kg/m^2 10/13/2017 12:45pm Results Laboratory Results Test Name Result Units Flags Reference Collection Date/Time Result Date/ Time Comments Stool Lactoferrin (LAB) NEGATIVE NEGATIVE 02/15/2017 8:00pm 2016 8:26pm Testing on stool aspirate specimens is outside greenhouse laborer claims since specimen type not validated on this assay. Clostridium Difficile Toxin A & B NEGATIVE NEGATIVE 02/15/2017 8:00pm 02/16/2017 10:33am Testing on stool aspirate specimens is outside greenhouse laborer claims since specimen type not validated on this assay. Neutrophils (%) (Auto) 55.8 % 38.7-80.0 10/12/2017 [...] x10e3/uL 0-0.1 10/12/2017 8: 45am 10/12/2017 9:04am Bedside Glucose 168 mg/dL H 70-120 10/12/2017 11:45am 10/12/2017 12: 19pm Meter ID: [id number] White Blood Count 5.27 x10e3/uL 4.8-10.8 10/13/2017 2:45pm 10/13/2017 3 :07pm Red Blood Count 3.57 x10e6/uL L 4.3-5.7 10/13/2017 2:45pm 10/13/2017 3: 07pm Hemoglobin 10.5 g/dL L 14.0-18.0 10/13/2017 2:45pm 10/13/2017 3:07pm Hematocrit 31.5 % L 38.2-49.6 10/13/2017 2:45pm 10/13/2017 3:07pm Mean Corpuscular Volume 88.2 fL 81-99 10/13/2017 2:45pm 10/13/2017 3: 07pm Mean Corpuscular Hemoglobin 29.4 pg 28-32 10/13/2017 2:45pm 10/13/2017 3:07pm Mean Corpuscular Hemoglobin Concent 33.3 g/dL 31-35 10/13/2017 2:45pm 10/13/2017 3:07pm Red Cell Distribution Width 14.3 % 11.7-14.4 10/13/2017 2:45pm 2017 3:07pm Platelet Count 147 x10e3/uL 140-360 10/13/2017 2:45pm 10/13/2017 3: 07pm Differential Total Cells Counted 100 10/13/2017 2:45pm 10/13/2017 4 :36pm Neutrophils % (Manual) 77 % H 40-74 10/13/2017 2:45pm 10/13/2017 4:36pm Lymphocytes % (Manual) 14 % L 19-48 10/13/2017 2:45pm 10/13/2017 4:36pm Monocytes % (Manual) 3 % L 3.4-9.0 10/13/2017 2:45pm 10/13/2017 4:36pm Reactive Lymphocytes 6 10/13/2017 2:45pm 10/13/2017 4:36pm Platelet Estimate ADEQUATE 10/13/2017 2:45pm 10/13/2017 4:36pm Platelet Morphology Comment NORMAL 10/13/2017 2:45pm 10/13/2017 4: 36pm Red Cell Morphology Comment NORMAL 10/13/2017 2:45pm 10/13/2017 4: 36pm Urine Color YELLOW YELLOW 10/13/2017 2:30pm 10/13/2017 4:11pm Urine Clarity CLOUDY H CLEAR 10/13/2017 2:30pm 10/13/2017 4:11pm Urine Specific [place] 1.020 1.010-1.025 10/13/2017 2:30pm 2017 4:11pm Urine pH 7 5 - 7 10/13/2017 2:30pm 10/13/2017 4:11pm Urine Leukocyte Esterase 1+ H NEGATIVE 10/13/2017 2:30pm 10/13/2017 4: 11pm Urine Nitrite NEGATIVE NEGATIVE 10/13/2017 2:30pm 10/13/2017 4:11pm Urine Protein NEGATIVE NEGATIVE 10/13/2017 2:30pm 10/13/2017 4:11pm Urine Glucose (UA) NEGATIVE NEGATIVE 10/13/2017 2:30pm 10/13/2017 4: 11pm Urine Ketones NEGATIVE NEGATIVE 10/13/2017 2:30pm 10/13/2017 4:11pm Urine Urobilinogen 0.2 mg/dL 0.2 - 1 10/13/2017 2:30pm 10/13/2017 4: 11pm Urine Bilirubin NEGATIVE NEGATIVE 10/13/2017 2:30pm 10/13/2017 4: 11pm Urine Blood TRACE H NEGATIVE 10/13/2017 2:30pm 10/13/2017 4:11pm Urine WBC 11-20 /HPF H 0-5 10/13/2017 2:30pm 10/13/2017 4:18pm Urine RBC 6-10 /HPF H 0-5 10/13/2017 2:30pm 10/13/2017 4:18pm Urine Bacteria MANY /HPF H NONE 10/13/2017 2:30pm 10/13/2017 4:18pm Urine Epithelial Cells NONE /LPF NONE 10/13/2017 2:30pm 10/13/2017 4: 18pm Urine Amorphous Sediment MODERATE H FEW 10/13/2017 2:30pm 10/13/2017 4 :18pm Urine White Blood Cell Casts 1-5 H 0 10/13/2017 2:30pm 10/13/2017 4: 18pm Urine Mucus RARE RARE 10/13/2017 2:30pm 10/13/2017 4:18pm Sodium Level 140 mmol/L 136-145 10/13/2017 4:40pm 10/13/2017 5:09pm Potassium Level 3.9 mmol/L 3.5-5.1 10/13/2017 4:40pm 10/13/2017 5:09pm Chloride Level 104 mmol/L 98-107 10/13/2017 4:40pm 10/13/2017 5:09pm Carbon Dioxide Level 26 mmol/L 22-29 10/13/2017 4:40pm 10/13/2017 5: 09pm Anion Gap 13.9 mmol/L 8-16 10/13/2017 4:40pm 10/13/2017 5:09pm Blood Urea Nitrogen 15 mg/dL 7-10/13/2017 4:40pm 10/13/2017 5:09pm Creatinine 1.17 mg/dL 0.72-1.25 10/13/2017 4:40pm 10/13/2017 5:09pm BUN/Creatinine Ratio 13 6-25 10/13/2017 4:40pm 10/13/2017 5:09pm Estimat Glomerular Filtration Rate 60 ML/MIN 60- 10/13/2017 4:40pm 5:09pm Ranges were taken from the National Kidney Disease Education Program and the National [employer] literature. Reference ranges: 60 or greater: Normal 16-59 (for 3 consecutive months): Chronic kidney disease 15 or less: Kidney failure Glucose Level 154 mg/dL H 74-118 10/13/2017 4:40pm 10/13/2017 5:09pm Calcium Level 8.9 mg/dL 8.4-10.2 10/13/2017 4:40pm 10/13/2017 5:09pm Phosphorus Level 3.2 MG/DL 2.3-4.7 10/13/2017 4:40pm 10/13/2017 5:09pm Magnesium Level 1.3 MG/DL 1.3-2.1 10/13/2017 4:40pm 10/13/2017 5:09pm Total Bilirubin 0.8 mg/dL 0.2-1.2 10/13/2017 4:40pm 10/13/2017 5:09pm Aspartate Amino Transf (AST/SGOT) 25 IU/L 5-34 10/13/2017 4:40pm 2017 5:09pm Alanine Aminotransferase (ALT/SGPT) 16 IU/L 0-55 10/13/2017 4:40pm 5:09pm Total Protein 6.5 g/dL 6.5-8.1 10/13/2017 4:40pm 10/13/2017 5:09pm Albumin 3.3 g/dL L 3.5-5.0 10/13/2017 4:40pm 10/13/2017 5:09pm Globulin 3.2 g/dL 2.3-3.5 10/13/2017 4:40pm 10/13/2017 5:09pm Albumin/Globulin Ratio 1.0 0.8-2.0 10/13/2017 4:40pm 10/13/2017 5: 09pm Alkaline Phosphatase 58 IU/L 40-150 10/13/2017 4:40pm 10/13/2017 5: 09pm Troponin I < 0.001 ng/mL 0-0.300 10/13/2017 4:40pm 10/13/2017 5:28pm Thyroid Stimulating Hormone (TSH) 0.875 uIU/mL 0.350-4.940 10/13/2017 4: 40pm 10/13/2017 5:28pm Microbiology Results Procedure Source Organism/Result Collection Date/Time [...] Attending Provider Departed Emergency Room [facility] 10/13/17 12:29pm 10/13 7:09pm GAGE MELCHOR MD Discharged Inpatient [facility] 10/11/17 5:06pm 10/12/17 7:53pm DAGOBERTO HEWITT MD Registered Surgical Day Care [facility] 10/08/17 7:33am DARREN GARIBAY MD Discharged Inpatient [facility] 02/15/17 2:33pm 02/20/17 3:30pm DAGOBERTO HEWITT MD
== END 2017-11-22 17:19 | disposition home or self-care (01) ==
LOC: FSED 12:07
DX: R07.89 Other chest pain (principal); S22.42XA Multiple fractures of ribs, left side, initial encounter for closed fracture; J90 Pleural effusion, not elsewhere classified; W01.0XXA Fall on same level from slipping, tripping and stumbling without subsequent striking against object, initial encounter; Y93.01 Activity, walking, marching and hiking; Y92.008 Other place in unspecified non-institutional (private) residence as the place of occurrence of the external cause; K59.00 Constipation, unspecified; N20.1 Calculus of ureter
CPT/HCPCS: 71101; 71250; 74176; 80053; 85025; 99284

== ENCOUNTER 2018-01-14 19:56 | Emergency (ER) | payer OTHER, MEDICARE ==
[~2018-01-14] VITALS: Ht 177.8 cm; Wt 77.1 kg
[2018-01-14] MEDS ORDERED: ULTRAM 50MG50 MG PO (22:00)
== END 2018-01-14 22:55 | disposition home or self-care (01) ==
LOC: FSED 19:56
DX: S00.83XA Contusion of other part of head, initial encounter (principal); S62.515A Nondisplaced fracture of proximal phalanx of left thumb, initial encounter for closed fracture; W01.0XXA Fall on same level from slipping, tripping and stumbling without subsequent striking against object, initial encounter; Y92.008 Other place in unspecified non-institutional (private) residence as the place of occurrence of the external cause
CPT/HCPCS: 99284

== ENCOUNTER → 2021-07-18 | Day surgery (SDC) | payer MEDICARE, OTHER ==
[2021-07-16 08:41] LABS: BASOPHILS % 0.7 % (0.0-1.0); EOSINOPHILS # (AUTO) 0.2 (0.0-0.4); EOSINOPHILS % 3.2 % (0.0-6.0); HEMATOCRIT 37.4 % (38.2-49.6); HEMOGLOBIN 11.6 g/dL (14.0-18.0); LYMPHOCYTES # (AUTO) 1.6 (1.0-3.2); LYMPHOCYTES % 26.8 % (18.0-39.1); MEAN CORPUSCULAR HEMOGLOBIN 29.7 pg (28-32); MEAN CORPUSCULAR VOLUME 95.9 fL (81-99); MONOCYTES # (AUTO) 0.5 (0.2-0.8); MONOCYTES % 7.9 % (4.4-11.3); NEUTROPHILS # (AUTO) 3.7 (2.1-6.9); NEUTROPHILS % 61.2 % (38.7-80.0); PLATELET COUNT 184 x10e3/uL (140-360); RED CELL DISTRIBUTION WIDTH 13.1 % (11.7-14.4)
[~2021-07-18] MED LIST changes: +PROPOFOL IV EMULSION 10 MG/ML 20 ML VIAL ONE
[2021-07-18 08:30] VITALS: BP 136/70
== END | disposition home or self-care (01) ==
LOC: OR 06:47
PROVIDERS: ATTEND Internal Medicine Gastroenterology
DX: Z08 Encounter for follow-up examination after completed treatment for malignant neoplasm (principal); Z85.038 Personal history of other malignant neoplasm of large intestine; K64.8 Other hemorrhoids; E11.9 Type 2 diabetes mellitus without complications; K21.9 Gastro-esophageal reflux disease without esophagitis; I25.10 Atherosclerotic heart disease of native coronary artery without angina pectoris; I10 Essential (primary) hypertension; I49.1 Atrial premature depolarization; E78.00 Pure hypercholesterolemia, unspecified; Z88.0 Allergy status to penicillin; Z01.810 Encounter for preprocedural cardiovascular examination; Z01.812 Encounter for preprocedural laboratory examination; Z20.822 Contact with and (suspected) exposure to COVID-19; Z79.84 Long term (current) use of oral hypoglycemic drugs; Z79.899 Other long term (current) drug therapy; Z86.73 Personal history of transient ischemic attack (TIA), and cerebral infarction without residual deficits
CPT/HCPCS: 36415 ×2; 45378; 82948; 85025; 93005; U0002

== ENCOUNTER 2023-05-02 11:19 | Inpatient (IN) | payer MEDICARE, OTHER ==
[~2023-05-02] VITALS: Ht 177.8 cm; Wt 77.1 kg
[~2023-05-02 11:19] MED LIST changes: +ENALAPRIL MALEA20 MG PO; +LOPRESSOR25 MG PO; +MACROBID 100 M100 MG PO; +METFORMIN HCL500 MG PO; +OXYBUTYNIN CHLO10 MG PO; -PROPOFOL IV EMULSION 10 MG/ML 20 ML VIAL ONE; +ROSUVASTATIN CAL5 MG PO; +SOLIFENACIN SUCC5 MG PO; +TRIAMTERENE-HCTZ1 EA PO; +TYLENOL325 MG PO
[2023-05-02] MEDS ORDERED: SODIUM CHLORIDE FLUSH 10 ML SYR INJ PRN (13:45)
[2023-05-02] MEDS ORDERED: ONDANSETRON HCL INJ 2MG/ML 2ML 2 MG/ML VIAL IV PRN ×2 (13:45→16:02)
[2023-05-02] MEDS ORDERED: Morphine 2mg Syringe 2 MG/ML SYR IV PRN (13:45)
[2023-05-02] MEDS ORDERED: ENALAPRIL MALEATE 10 MG TAB PO ONE (14:00)
[2023-05-02 14:06] LABS: BASOPHILS % 0.4 % (0.0-1.0); EOSINOPHILS # (AUTO) 0.1 (0.0-0.4); EOSINOPHILS % 2.1 % (0.0-6.0); HEMATOCRIT 35.3 % (38.2-49.6); HEMOGLOBIN 11.7 g/dL (14.0-18.0); LYMPHOCYTES % 17.3 % (18.0-39.1); MEAN CORPUSCULAR HGB CONC 33.1 g/dL (31-35); MEAN CORPUSCULAR VOLUME 93.6 fL (81-99); MONOCYTES # (AUTO) 0.4 (0.2-0.8); MONOCYTES % 7.5 % (4.4-11.3); NEUTROPHILS # (AUTO) 4.1 (2.1-6.9); NEUTROPHILS % 72.5 % (38.7-80.0); PLATELET COUNT 131 x10e3/uL (140-360); RED BLOOD COUNT 3.77 x10e6/uL (4.3-5.7); RED CELL DISTRIBUTION WIDTH 12.9 % (11.7-14.4); WHITE BLOOD COUNT 5.61 x10e3/uL (4.8-10.8)
[2023-05-02 14:29] LABS: ALBUMIN 3.3 g/dL (3.5-5.0); ANION GAP 13.6 mmol/L (8-16); CALCIUM 9.1 mg/dL (8.4-10.2); CREATININE, SERUM 0.84 mg/dL (0.72-1.25); POTASSIUM 3.6 mmol/L (3.5-5.1)
[2023-05-02] MEDS ORDERED: QUETIAPINE FUMA25 MG PO (16:00)
[2023-05-02] MEDS ORDERED: MOXIFLOXACIN3 ML OU (16:11)
[2023-05-02] MEDS ORDERED: ALEVE PO (16:11)
[2023-05-02] MEDS ORDERED: KETOROLAC TROMET5 ML OU (16:11)
[2023-05-02] MEDS ORDERED: BAYER BACK PO (16:11)
[2023-05-02] MEDS ORDERED: HYDRALAZINE HCL 20 MG/ML VIAL IV PRN (16:15)
[2023-05-02] MEDS ORDERED: DOCUSATE SODIUM 100 MG CAP PO PRN (16:15)
[2023-05-02 16:46] VITALS: BP 169/85; PULSE 82; RESP 19; TEMP 98.6; O2SAT 98
[2023-05-02] MEDS ORDERED: PREDNISONE ACETATE OP (17:39)
[2023-05-02] MEDS ORDERED: TRAMADOL HCL 50 MG TAB PO PRN (18:45)
[2023-05-02] MEDS ORDERED: KETOROLAC TROMETHAMINE 10 MG TAB PO PRN (18:45)
[2023-05-02 20:00] VITALS: BP 136/73; PULSE 85; RESP 18; TEMP 99.1; O2SAT 96
[2023-05-03] VITALS (9 sets, daily range): BP systolic 126–158; BP diastolic 58–80; PULSE 69–88; RESP 17–20; TEMP 98.1–98.9; O2SAT 95–98
[2023-05-03] MEDS: QUETIAPINE FUMARATE 25 MG TAB PO SCH (17:46)
[2023-05-03] MEDS: CRESTOR 10MG PO SCH (17:48)
[2023-05-03] MEDS: ENALAPRIL MALEATE 10 MG TAB PO SCH (18:00)
[2023-05-03] MEDS: PANTOPRAZOLE SOD 40 MG TABEC PO SCH (18:00)
[2023-05-03] MEDS: PREDNISOLONE ACETATE 1% OPTH SUSP 5 ML BTL OP SCH (21:00)
[2023-05-03] MEDS: KETOROLAC TROMETHAMINE 0.5% OP SOLN 3 ML BTL OU SCH (21:00)
[2023-05-03] MEDS: SOLIFENACIN SUCCINATE 5 MG TAB PO SCH (21:09)
[2023-05-03] MEDS: HYDROCODONE/APAP 5MG-325MG TAB PO PRN (21:12)
[2023-05-04 03:15] VITALS: BP 159/70; PULSE 44; RESP 16; TEMP 97.8; O2SAT 95
[2023-05-04 08:15] VITALS: BP 172/98; PULSE 72; RESP 20; TEMP 97.8; O2SAT 96
[2023-05-04] MEDS: PREDNISOLONE ACETATE 1% OPTH SUSP 5 ML BTL OP SCH ×3 (09:00→21:00)
[2023-05-04] MEDS: KETOROLAC TROMETHAMINE 0.5% OP SOLN 3 ML BTL OU SCH ×3 (09:00→21:00)
[2023-05-04] MEDS: NITROFURANTOIN MACROCRYSTALS 100 MG CAP PO SCH ×2 (09:53→17:18)
[2023-05-04] MEDS: PANTOPRAZOLE SOD 40 MG TABEC PO SCH (09:53)
[2023-05-04] MEDS: ENALAPRIL MALEATE 10 MG TAB PO SCH (09:54)
[2023-05-04 10:12] VITALS: BP 172/98; PULSE 72; RESP 20; TEMP 97.8; O2SAT 96
[2023-05-04 11:28] VITALS: BP 169/82; PULSE 83; RESP 20; TEMP 97.5; O2SAT 97
[2023-05-04] MEDS ORDERED: ONDANSETRON HCL 4 MG ORAL DISINTEGRATING TAB PO PRN (11:30)
[2023-05-04] MEDS: HYDROCODONE/APAP 5MG-325MG TAB PO PRN ×2 (13:46→21:54)
[2023-05-04 16:13] VITALS: BP 139/71; PULSE 77; RESP 20; TEMP 98.3; O2SAT 93
[2023-05-04] MEDS: QUETIAPINE FUMARATE 25 MG TAB PO SCH (17:18)
[2023-05-04] MEDS: CRESTOR 10MG PO SCH (17:20)
[2023-05-04 20:00] VITALS: BP 148/72; PULSE 71; RESP 18; TEMP 98; O2SAT 96
[2023-05-04] MEDS: SOLIFENACIN SUCCINATE 5 MG TAB PO SCH (21:52)
[2023-05-05] VITALS (9 sets, daily range): BP systolic 133–179; BP diastolic 66–82; PULSE 62–84; RESP 17–20; TEMP 97.5–98.6; O2SAT 94–100
[2023-05-05 05:17] LABS: BASOPHILS % 0.6 % (0.0-1.0); EOSINOPHILS # (AUTO) 0.4 (0.0-0.4); EOSINOPHILS % 8.6 % (0.0-6.0); HEMATOCRIT 32.2 % (38.2-49.6); HEMOGLOBIN 10.9 g/dL (14.0-18.0); LYMPHOCYTES # (AUTO) 1.6 (1.0-3.2); LYMPHOCYTES % 33.3 % (18.0-39.1); MEAN CORPUSCULAR HEMOGLOBIN 31.7 pg (28-32); MEAN CORPUSCULAR HGB CONC 33.9 g/dL (31-35); MEAN CORPUSCULAR VOLUME 93.6 fL (81-99); MONOCYTES # (AUTO) 0.4 (0.2-0.8); MONOCYTES % 8.4 % (4.4-11.3); NEUTROPHILS # (AUTO) 2.3 (2.1-6.9); NEUTROPHILS % 48.9 % (38.7-80.0); PLATELET COUNT 93 x10e3/uL (140-360); RED BLOOD COUNT 3.44 x10e6/uL (4.3-5.7); RED CELL DISTRIBUTION WIDTH 12.6 % (11.7-14.4); WHITE BLOOD COUNT 4.75 x10e3/uL (4.8-10.8)
[2023-05-05 05:52] LABS: ANION GAP 10.7 mmol/L (8-16); CALCIUM 8.6 mg/dL (8.4-10.2); CREATININE, SERUM 0.86 mg/dL (0.72-1.25); POTASSIUM 3.7 mmol/L (3.5-5.1)
[2023-05-05] MEDS: ENALAPRIL MALEATE 10 MG TAB PO SCH (08:56)
[2023-05-05] MEDS: NITROFURANTOIN MACROCRYSTALS 100 MG CAP PO SCH ×2 (08:56→16:23)
[2023-05-05] MEDS: PANTOPRAZOLE SOD 40 MG TABEC PO SCH (08:56)
[2023-05-05] MEDS: HYDROCODONE/APAP 5MG-325MG TAB PO PRN ×2 (08:58→12:59)
[2023-05-05] MEDS: KETOROLAC TROMETHAMINE 0.5% OP SOLN 3 ML BTL OU SCH ×4 (08:59→21:00)
[2023-05-05] MEDS: PREDNISOLONE ACETATE 1% OPTH SUSP 5 ML BTL OP SCH ×4 (08:59→21:00)
[2023-05-05] MEDS: CRESTOR 10MG PO SCH (16:23)
[2023-05-05] MEDS: QUETIAPINE FUMARATE 25 MG TAB PO SCH (16:23)
[2023-05-05] MEDS ORDERED: POLYETHYLENE GLYCOL 3350 17 GM PACK PO PRN (18:00)
[2023-05-05] MEDS: DOCUSATE SODIUM 100 MG CAP PO SCH (18:11)
[2023-05-05] MEDS: SOLIFENACIN SUCCINATE 5 MG TAB PO SCH (20:31)
[2023-05-06 04:57] VITALS: BP 164/87; PULSE 82; RESP 20; TEMP 98.2; O2SAT 95
[2023-05-06 07:54] VITALS: PULSE 78; RESP 18; O2SAT 94
[2023-05-06] MEDS: KETOROLAC TROMETHAMINE 0.5% OP SOLN 3 ML BTL OU SCH ×2 (09:00→15:00)
[2023-05-06] MEDS: PREDNISOLONE ACETATE 1% OPTH SUSP 5 ML BTL OP SCH ×2 (09:00→15:00)
[2023-05-06 09:10] VITALS: BP 141/78; PULSE 78; RESP 19; TEMP 98.5; O2SAT 94
[2023-05-06] MEDS: DOCUSATE SODIUM 100 MG CAP PO SCH ×2 (10:58→16:43)
[2023-05-06] MEDS: PANTOPRAZOLE SOD 40 MG TABEC PO SCH (10:58)
[2023-05-06] MEDS: NITROFURANTOIN MACROCRYSTALS 100 MG CAP PO SCH ×2 (10:58→16:43)
[2023-05-06] MEDS: ENALAPRIL MALEATE 10 MG TAB PO SCH (10:59)
[2023-05-06 11:09] VITALS: BP 141/78; PULSE 78; RESP 19; TEMP 98.5; O2SAT 94
[2023-05-06 12:10] VITALS: BP 101/60; PULSE 83; RESP 21; TEMP 98.4; O2SAT 94
[2023-05-06] MEDS ORDERED: ULTRAM 50MG50 MG PO (12:32)
[2023-05-06] MEDS ORDERED: MIRALAX17 GM PO (12:32)
[2023-05-06] MEDS ORDERED: NITROFURANTOIN100 M1 PO (12:32)
[2023-05-06] MEDS ORDERED: COLACE100 M1 PO (12:32)
[2023-05-06] MEDS ORDERED: ONDANSETRON ODT4 MG PO (12:32)
[2023-05-06] MEDS ORDERED: KETOROLAC TROME10 MG PO (12:32)
[2023-05-06 15:55] VITALS: BP 132/86; PULSE 85; RESP 19; TEMP 98.7; O2SAT 96
[2023-05-06] MEDS: CRESTOR 10MG PO SCH (16:43)
[2023-05-06] MEDS: QUETIAPINE FUMARATE 25 MG TAB PO SCH (16:43)
[2023-05-06] MEDS: HYDROCODONE/APAP 5MG-325MG TAB PO PRN (16:43)
== END 2023-05-06 16:53 | disposition home or self-care (01) | DRG 536 ==
LOC: ER 11:30 → ERHOLD 13:34 → MED/SURG 15:19 → OBSVTOIN 05-04 11:46
PROVIDERS: ADMIT Internal Medicine; ATTEND Internal Medicine
DX: S32.592A Other specified fracture of left pubis, initial encounter for closed fracture (principal); I48.20 Chronic atrial fibrillation, unspecified; I13.0 Hypertensive heart and chronic kidney disease with heart failure and stage 1 through stage 4 chronic kidney disease, or unspecified chronic kidney disease; W19.XXXA Unspecified fall, initial encounter; Y92.242 Post office as the place of occurrence of the external cause; E78.5 Hyperlipidemia, unspecified; K21.9 Gastro-esophageal reflux disease without esophagitis; M19.90 Unspecified osteoarthritis, unspecified site; I25.10 Atherosclerotic heart disease of native coronary artery without angina pectoris; M54.9 Dorsalgia, unspecified; G89.29 Other chronic pain; I50.9 Heart failure, unspecified; N18.9 Chronic kidney disease, unspecified; E11.22 Type 2 diabetes mellitus with diabetic chronic kidney disease; E11.65 Type 2 diabetes mellitus with hyperglycemia; E11.69 Type 2 diabetes mellitus with other specified complication; D63.1 Anemia in chronic kidney disease; D69.6 Thrombocytopenia, unspecified; Z96.642 Presence of left artificial hip joint; Z11.52 Encounter for screening for COVID-19; Z90.49 Acquired absence of other specified parts of digestive tract; Z98.1 Arthrodesis status; Z88.0 Allergy status to penicillin; Z79.84 Long term (current) use of oral hypoglycemic drugs; Z86.73 Personal history of transient ischemic attack (TIA), and cerebral infarction without residual deficits; Z85.030 Personal history of malignant carcinoid tumor of large intestine; Z92.21 Personal history of antineoplastic chemotherapy
CPT/HCPCS: 36415; 80048; 80053; 83036; 85025; 94799; G0378; Q0162; U0002

== ENCOUNTER 2024-12-21 18:30 | Inpatient (IN) | payer MEDICARE, OTHER ==
[~2024-12-21] VITALS: Ht 210.8 cm; Wt 72.6 kg
[~2024-12-21 18:30] MED LIST changes: +ALEVE PO; +BAYER BACK PO; +COLACE100 M1 PO; +KETOROLAC TROME10 MG PO; +KETOROLAC TROMET5 ML OU; +MIRALAX17 GM PO; +MOXIFLOXACIN3 ML OU; +NITROFURANTOIN100 M1 PO; +ONDANSETRON ODT4 MG PO; +PREDNISONE ACETATE OP; +QUETIAPINE FUMA25 MG PO
[2024-12-21] MEDS: SODIUM CHLORIDE 0.9% 1000ML 1,000 ML IV STA (19:25)
[2024-12-21 19:28] LABS: BASOPHILS % 0.2 % (0.0-1.0); EOSINOPHILS % 0.3 % (0.0-6.0); HEMATOCRIT 34.7 % (38.2-49.6); HEMOGLOBIN 11.6 g/dL (14.0-18.0); LYMPHOCYTES # (AUTO) 0.8 (1.0-3.2); LYMPHOCYTES % 8.6 % (18.0-39.1); MEAN CORPUSCULAR HEMOGLOBIN 31.9 pg (28-32); MEAN CORPUSCULAR HGB CONC 33.4 g/dL (31-35); MEAN CORPUSCULAR VOLUME 95.3 fL (81-99); MONOCYTES # (AUTO) 0.8 (0.2-0.8); MONOCYTES % 8.6 % (4.4-11.3); NEUTROPHILS % 81.9 % (38.7-80.0); PLATELET COUNT 172 x10e3/uL (140-360); RED BLOOD COUNT 3.64 x10e6/uL (4.3-5.7); RED CELL DISTRIBUTION WIDTH 13.9 % (11.7-14.4); WHITE BLOOD COUNT 9.72 x10e3/uL (4.8-10.8)
[2024-12-21 19:58] LABS: ALBUMIN/GLOBULIN RATIO 0.7 (0.8-2.0); ANION GAP 14.9 mmol/L (8-16); CALCIUM 8.6 mg/dL (8.4-10.2); CREATININE, SERUM 1.23 mg/dL (0.72-1.25); POTASSIUM 3.9 mmol/L (3.5-5.1); TOTAL PROTEIN 7.1 g/dL (6.5-8.1)
[2024-12-21 20:04] LABS: TROPONIN I 0.012 ng/mL (0-0.300)
[2024-12-21] MEDS: MECLIZINE HCL 12.5 MG TAB PO STA (20:58)
[2024-12-21 21:48] LABS: BILIRUBIN,URINE NEGATIVE (NEGATIVE); CLARITY,URINE CLOUDY (CLEAR); COLOR,URINE YELLOW (YELLOW); GLUCOSE, URINE NEGATIVE (NEGATIVE); KETONES,URINE NEGATIVE (NEGATIVE); LEUKOCYTE ESTERASE ,URINE SMALL (NEGATIVE); NITRITE,URINE NEGATIVE (NEGATIVE); PH,URINE 6 (5 - 7); PROTEIN,URINE DIPSTICK TRACE (NEGATIVE); URINE UROBILINOGEN 1 mg/dL (0.2 - 1)
[2024-12-21] MEDS ORDERED: IOPAMIDOL 370 MG/ML 100 ML INFUS..BTL INJ ONE (21:56)
[2024-12-21] MEDS: SODIUM CHLORIDE 0.9% 1000ML 1,000 ML IV SCH (22:00)
[2024-12-21] MEDS ORDERED: ONDANSETRON HCL INJ 2MG/ML 2ML 2 MG/ML VIAL IV PRN (22:00)
[2024-12-21] MEDS ORDERED: Morphine 2mg Syringe 2 MG/ML SYR IV PRN (22:00)
[2024-12-21 22:09] LABS: BACTERIA,URINE MANY /HPF
[2024-12-21 23:08] VITALS: PULSE 84; RESP 18; TEMP 98.6
[2024-12-22] VITALS (12 sets, daily range): BP systolic 143–170; BP diastolic 68–92; PULSE 72–86; RESP 16–20; TEMP 95.7–98.5; O2SAT 95–100
[2024-12-22] MEDS: QUETIAPINE FUMARATE 25 MG TAB PO STA (00:22)
[2024-12-22 06:29] LABS: BASOPHILS % 0.5 % (0.0-1.0); EOSINOPHILS % 0.5 % (0.0-6.0); HEMATOCRIT 32.5 % (38.2-49.6); HEMOGLOBIN 10.9 g/dL (14.0-18.0); LYMPHOCYTES % 17.2 % (18.0-39.1); MEAN CORPUSCULAR HEMOGLOBIN 32.5 pg (28-32); MEAN CORPUSCULAR HGB CONC 33.5 g/dL (31-35); MONOCYTES # (AUTO) 0.7 (0.2-0.8); MONOCYTES % 11.1 % (4.4-11.3); NEUTROPHILS # (AUTO) 4.2 (2.1-6.9); NEUTROPHILS % 70.2 % (38.7-80.0); PLATELET COUNT 112 x10e3/uL (140-360); RED BLOOD COUNT 3.35 x10e6/uL (4.3-5.7); RED CELL DISTRIBUTION WIDTH 13.5 % (11.7-14.4); WHITE BLOOD COUNT 5.92 x10e3/uL (4.8-10.8)
[2024-12-22 06:52] LABS: ALBUMIN 2.6 g/dL (3.5-5.0); ALBUMIN/GLOBULIN RATIO 0.7 (0.8-2.0); ANION GAP 12.3 mmol/L (8-16); BILIRUBIN,TOTAL 1.5 mg/dL (0.2-1.2); CALCIUM 8.1 mg/dL (8.4-10.2); CREATININE, SERUM 0.99 mg/dL (0.72-1.25); TOTAL PROTEIN 6.1 g/dL (6.5-8.1)
[2024-12-22 06:54] LABS: POTASSIUM 3.3 mmol/L (3.5-5.1)
[2024-12-22 07:17] LABS: TROPONIN I 0.019 ng/mL (0-0.300)
[2024-12-22] MEDS: LEVOFLOXACIN 750MG/D5W 150ML 150 ML IV SCH (08:55)
[2024-12-22] MEDS ORDERED: ACETAMINOPHEN 325 MG TAB PO PRN (09:30)
[2024-12-22] MEDS ORDERED: MECLIZINE HCL 12.5 MG TAB PO PRN (09:30)
[2024-12-22] MEDS ORDERED: MEMANTINE HCL5 MG PO (10:02)
[2024-12-22] MEDS ORDERED: VITAMIN B-121000 MCG PO (10:03)
[2024-12-22] MEDS ORDERED: FOLIC ACID-VIT1 EACH PO (10:06)
[2024-12-22] MEDS ORDERED: LEXAPRO10 MG PO (10:16)
[2024-12-22] MEDS ORDERED: LEXAPRO5 MG PO (10:16)
[2024-12-22] MEDS: QUETIAPINE FUMARATE 25 MG TAB PO SCH (10:40)
[2024-12-22] MEDS: KETOROLAC TROMETHAMINE 0.5% OP SOLN 3 ML BTL OU SCH (15:00)
[2024-12-22 15:10] LABS: CORONAVIRUS COVID-19 AG NEGATIVE (NEGATIVE); INFLUENZA A AG NEGATIVE (NEGATIVE); INFLUENZA B AG NEGATIVE (NEGATIVE)
[2024-12-22 16:05] LABS: TROPONIN I 0.013 ng/mL (0-0.300)
[2024-12-22] MEDS: MECLIZINE HCL 12.5 MG TAB PO SCH (16:45)
[2024-12-22] MEDS: LISINOPRIL 20 MG TAB PO SCH (16:45)
[2024-12-22] MEDS ORDERED: QUETIAPINE FUMARATE 25 MG TAB PO SCH (21:00)
[2024-12-22] MEDS: ESCITALOPRAM OXALATE 10 MG TAB PO SCH (21:45)
[2024-12-22] MEDS: SOLIFENACIN SUCCINATE 5 MG TAB PO SCH (21:45)
[2024-12-23] VITALS (9 sets, daily range): BP systolic 126–178; BP diastolic 68–92; PULSE 62–91; RESP 16–20; TEMP 97.5–98.2; O2SAT 93–98
[2024-12-23] MEDS: TRAMADOL HCL 50 MG TAB PO PRN (00:02)
[2024-12-23 06:15] LABS: BASOPHILS % 0.4 % (0.0-1.0); EOSINOPHILS # (AUTO) 0.1 (0.0-0.4); EOSINOPHILS % 1.4 % (0.0-6.0); HEMATOCRIT 32.1 % (38.2-49.6); HEMOGLOBIN 10.4 g/dL (14.0-18.0); LYMPHOCYTES # (AUTO) 0.9 (1.0-3.2); LYMPHOCYTES % 15.1 % (18.0-39.1); MEAN CORPUSCULAR HEMOGLOBIN 32.1 pg (28-32); MEAN CORPUSCULAR HGB CONC 32.4 g/dL (31-35); MEAN CORPUSCULAR VOLUME 99.1 fL (81-99); MONOCYTES # (AUTO) 0.6 (0.2-0.8); MONOCYTES % 9.9 % (4.4-11.3); NEUTROPHILS # (AUTO) 4.1 (2.1-6.9); NEUTROPHILS % 72.8 % (38.7-80.0); PLATELET COUNT 135 x10e3/uL (140-360); RED BLOOD COUNT 3.24 x10e6/uL (4.3-5.7); RED CELL DISTRIBUTION WIDTH 13.6 % (11.7-14.4); WHITE BLOOD COUNT 5.64 x10e3/uL (4.8-10.8)
[2024-12-23 06:56] LABS: THYROID STIMULATING HORMONE 0.507 uIU/mL (0.350-4.940)
[2024-12-23 06:57] LABS: ALBUMIN 2.4 g/dL (3.5-5.0); ALBUMIN/GLOBULIN RATIO 0.7 (0.8-2.0); ANION GAP 11.2 mmol/L (8-16); BILIRUBIN,TOTAL 1.4 mg/dL (0.2-1.2); CALCIUM 7.9 mg/dL (8.4-10.2); CREATININE, SERUM 0.85 mg/dL (0.72-1.25); TOTAL PROTEIN 5.7 g/dL (6.5-8.1)
[2024-12-23 07:09] LABS: POTASSIUM 3.2 mmol/L (3.5-5.1)
[2024-12-23] MEDS ORDERED: PANTOPRAZOLE SOD 40 MG TABEC PO SCH (07:30)
[2024-12-23 08:18] LABS: MAGNESIUM 1.3 MG/DL (1.3-2.1); PHOSPHORUS 2.3 MG/DL (2.3-4.7)
[2024-12-23] MEDS: TRIAMTERENE/HCTZ 37.5-25 MG TAB PO SCH (08:45)
[2024-12-23] MEDS: ESCITALOPRAM OXALATE 10 MG TAB PO SCH (08:45)
[2024-12-23] MEDS: CYANOCOBALAMIN 1,000 MCG TAB PO SCH (08:45)
[2024-12-23] MEDS: POTASSIUM CHLORIDE 20 MEQ TAB CR PO ONE (08:45)
[2024-12-23] MEDS: LEVOFLOXACIN 500MG/D5W 100ML 100 ML IV SCH (08:47)
[2024-12-23] MEDS ORDERED: SOLIFENACIN SUCCINATE 5 MG TAB PO SCH (09:00)
[2024-12-23] MEDS: MAGNESIUM SULFATE 2GM/50ML 50 ML IV ONE ×2 (11:51)
[2024-12-23] MEDS: PHOSPHORUS 250 MG TAB PO ONE (12:17)
[2024-12-23] MEDS: AMLODIPINE BESYLATE 10 MG TAB PO SCH (14:28)
[2024-12-24] VITALS (10 sets, daily range): BP systolic 104–197; BP diastolic 59–96; PULSE 75–87; RESP 16–19; TEMP 97.4–98.7; O2SAT 93–98
[2024-12-24 06:43] LABS: ANION GAP 13.7 mmol/L (8-16); CALCIUM 8.4 mg/dL (8.4-10.2); CREATININE, SERUM 0.86 mg/dL (0.72-1.25); MAGNESIUM 1.9 MG/DL (1.3-2.1); POTASSIUM 3.7 mmol/L (3.5-5.1)
[2024-12-24] MEDS: PANTOPRAZOLE SOD 40 MG TABEC PO SCH (10:40)
[2024-12-24] MEDS: PHOSPHORUS 250 MG TAB PO SCH (10:40)
[2024-12-25] VITALS (10 sets, daily range): BP systolic 98–141; BP diastolic 52–71; PULSE 74–90; RESP 17–20; TEMP 97.7–98.2; O2SAT 92–98
[2024-12-26] VITALS: BP 137/79; PULSE 83; RESP 18; TEMP 98.1; O2SAT 96
[2024-12-26 00:05] VITALS: PULSE 82; RESP 18; O2SAT 95
[2024-12-26 04:00] VITALS: BP 135/89; PULSE 74; RESP 18; TEMP 97.9; O2SAT 95
[2024-12-26 06:22] LABS: ANION GAP 13.7 mmol/L (8-16); CALCIUM 8.6 mg/dL (8.4-10.2); CREATININE, SERUM 1.08 mg/dL (0.72-1.25); MAGNESIUM 1.7 MG/DL (1.3-2.1); PHOSPHORUS 2.6 MG/DL (2.3-4.7); POTASSIUM 3.7 mmol/L (3.5-5.1)
[2024-12-26 06:31] LABS: BASOPHILS % 0.4 % (0.0-1.0); EOSINOPHILS % 0.4 % (0.0-6.0); HEMATOCRIT 31.2 % (38.2-49.6); HEMOGLOBIN 10.1 g/dL (14.0-18.0); LYMPHOCYTES % 12.3 % (18.0-39.1); MEAN CORPUSCULAR HGB CONC 32.4 g/dL (31-35); MEAN CORPUSCULAR VOLUME 98.7 fL (81-99); MONOCYTES # (AUTO) 0.7 (0.2-0.8); MONOCYTES % 9.3 % (4.4-11.3); NEUTROPHILS # (AUTO) 6.1 (2.1-6.9); NEUTROPHILS % 77.2 % (38.7-80.0); PLATELET COUNT 135 x10e3/uL (140-360); RED BLOOD COUNT 3.16 x10e6/uL (4.3-5.7); RED CELL DISTRIBUTION WIDTH 13.9 % (11.7-14.4); WHITE BLOOD COUNT 7.86 x10e3/uL (4.8-10.8)
[2024-12-26 08:00] VITALS: BP 150/74; PULSE 77; RESP 18; TEMP 98.4; O2SAT 94
[2024-12-26 08:08] LABS: FERRITIN 135.75 ng/mL (21.81-274.66)
[2024-12-26 08:56] VITALS: PULSE 85; RESP 18; O2SAT 96
[2024-12-26] MEDS: IRON SUCROSE 100 MG in SODIUM CHLORIDE 0.9% 100 ML IV SCH (10:24)
[2024-12-26] MEDS: MAGNESIUM SULF 1GRAM/DEXTROSE 100 ML IV ONE (10:24)
[2024-12-26 12:00] VITALS: BP 99/56; PULSE 82; RESP 17; TEMP 97.3; O2SAT 97
[2024-12-26] MEDS ORDERED: FERROUS SULFAT325 M1 PO (13:33)
[2024-12-26] MEDS ORDERED: LEVOFLOXACIN250 MG PO (13:33)
[2024-12-26] MEDS ORDERED: K-PHOS NEUTRAL250 MG PO (13:33)
[2024-12-26] MEDS ORDERED: MELATONIN3 MG PO (13:33)
[2024-12-26] MEDS ORDERED: MACROBID 100 M100 MG PO (13:33)
[2024-12-26] MEDS ORDERED: VITAMIN C 500500 MG PO (13:33)
[2024-12-26] MEDS: SODIUM CHLORIDE 0.9% 500ML 500 ML IV ONE (15:04)
== END 2024-12-26 17:49 | disposition home health service (06) | DRG 193 ==
LOC: ER 18:36 → ERHOLD 21:59 → MED/SURG3 23:47 → MED/SURG2 12-26 16:40
PROVIDERS: ADMIT Internal Medicine; ATTEND Internal Medicine
DX: J18.9 Pneumonia, unspecified organism (principal); G93.41 Metabolic encephalopathy; E44.0 Moderate protein-calorie malnutrition; R64 Cachexia; Z68.1 Body mass index [BMI] 19.9 or less, adult; R62.7 Adult failure to thrive; E11.9 Type 2 diabetes mellitus without complications; G30.9 Alzheimer's disease, unspecified; E78.00 Pure hypercholesterolemia, unspecified; I48.91 Unspecified atrial fibrillation; Y95 Nosocomial condition; R42 Dizziness and giddiness; I10 Essential (primary) hypertension; R09.02 Hypoxemia; K21.9 Gastro-esophageal reflux disease without esophagitis; F32.A Depression, unspecified; M19.90 Unspecified osteoarthritis, unspecified site; F02.80 Dementia in other diseases classified elsewhere, unspecified severity, without behavioral disturbance, psychotic disturbance, mood disturbance, and anxiety; D50.9 Iron deficiency anemia, unspecified; E87.6 Hypokalemia; E83.39 Other disorders of phosphorus metabolism; K46.9 Unspecified abdominal hernia without obstruction or gangrene; E83.42 Hypomagnesemia; Z11.52 Encounter for screening for COVID-19; Z85.038 Personal history of other malignant neoplasm of large intestine; Z90.49 Acquired absence of other specified parts of digestive tract; Z98.1 Arthrodesis status; Z88.0 Allergy status to penicillin; Z87.891 Personal history of nicotine dependence
CPT/HCPCS: 36415; 36568; 70450; 71045; 71260; 80048; 80053; 81001; 82550; 82607; 82728; 82746; 82948; 83540; 83735; 83880; 84100; 84443; 84466; 84484; 85025; 85045; 93005; 94799; 99252; 99284; J1756; J1956; J2470; J3475; J7030; J7040; J7050; Q9967